=== PATIENT | male | born 1950 | race Hispanic/Latino ===

== ENCOUNTER 2017-04-12 00:13 | Inpatient (IN) | payer OTHER ==
[~2017-04-12] VITALS: Ht 167.6 cm; Wt 77.1 kg
--- NOTE | 2017-04-12 00:20 | ED CARDIAC/CP/PALPITATIONS ---
History of Present Illness General Chief Complaint: General Adult Stated Complaint: "HIGH BP,@ HOME BP195/134/HR 120,CHEST PA Source: patient, Daughter Exam Limitations: no limitations Reconcile Medications Atorvastatin Calcium 10 MG TABLET 1 TAB PO DAILY CHOL (Reported) Lisinopril 10 MG TABLET 1 TAB PO DAILY HTN (Reported) Omeprazole 20 MG CAPSULE.DR 1 CAP PO DAILY GERD (Reported) Triage Nurses Notes Reviewed? yes HPI: Mr. Scherer is a 66-year-old male former smoker (> 30 yrs ago) with a past medical history significant for hypertension, hyperlipidemia, stage 2 diastolic dysfunction (ECHO 2014), granulomatous disease who presents to the ED with palpitations for one day. Patient reports he was feeling fatigued all day and drank some coffee approximately 10 pm. Patient went to bed, then around 11 pm he began to feel palpitations. He took his blood pressure and noted a BP>190/130s that prompted him to come to the ED. He reports compliance with his medications. He denies any previous episodes. He denies SOB, CP, ARVIZU, blurry vision, fever, chills, night sweats, nausea, vomiting, lightheadedness. (Cris Garcia MD) Vital Signs & Intake/Output Vital Signs & Intake/Output Vital Signs Date Time Temp Pulse Resp B/P B/P Pulse O2 O2 Flow FiO2 Mean Ox Delivery Rate 04/12 128 98.3 133 20 175/111 04/12 012 98.3 133 20 175/111 97 Room Air 04/12 0039 98.1 136 18 160/80 98 Room Air Allergies Coded Allergies: No Known Allergies (04/12/17) (Corey LAWSON,Tony) Past History Travel History Traveled to [place] past 21 day No Medical History Any Pertinent Medical History? see below for history Cardiovascular: hypertension, hyperlipidemia Surgical History Surgical History: non-contributory Psychosocial History What is your primary language Niuean Family History Hx Contributory? Yes (Cris Garcia MD) Review of Systems Review of Systems Constitutional: Reports: see HPI. (Cris Garcia MD) Review of Systems EENTM: Reports: no symptoms. Respiratory: Reports: no symptoms. Cardiovascular: Reports: see HPI, palpitations. GI: Reports: no symptoms. Genitourinary: Reports: no symptoms. Musculoskeletal: Reports: no symptoms. Skin: Reports: no symptoms. Neurological/Psychological: Reports: no symptoms. Hematologic/Endocrine: Reports: no symptoms. Immunologic/Allergic: Reports: no symptoms. All Other Systems: Reviewed and Negative (Tony Nicole MD) Physical Exam Physical Exam General Appearance: well developed/nourished, anxious Head: atraumatic, normal appearance Eyes: Bilateral: normal appearance, PERRL, EOMI. Ears, Nose, Throat: normal pharynx, normal ENT inspection, hearing grossly normal Neck: normal inspection, supple, full range of motion Respiratory: normal breath sounds, lungs clear Cardiovascular: irregularly irregular Gastrointestinal: normal bowel sounds, soft, non-tender Rectal: heme negative stool Extremities: no edema Core Measures ACS in differential dx? No CVA/TIA Diagnosis No Sepsis Present: No Sepsis Focused Exam Completed? No (Radha LAWSON,[facility]) Physical Exam Peripheral Pulses: 4+ carotid (R), 4+ carotid (L) Back: normal inspection, normal range of motion Neurologic/Psych: no motor/sensory deficits, awake, alert, oriented x 3, normal gait, water trainer II-XII nml as tested Reflexes: 2+: bicep (R), bicep (L). Skin: intact, normal color, warm/dry Lymphatic: no anterior cervical naima (Tony Nicole MD) Progress Differential Diagnosis: atrial fibrillation, hyperthyroid Plan of Care: Orders Procedure Date/time Status Nothing by Mouth 04/12 B Active PARTIAL THROMBOPLASTIN TIME 04/12 0810 Active Admit to inpatient 04/12 0305 Active Patient Data 04/12 0304 Active EKG 04/12 0302 Active Misc Message 04/12 0213 Active ED Holding Orders 04/12 0213 Active Vital Signs 04/12 0213 Active Code Status 04/12 0213 Active Lab Add-on Test 04/12 0131 Active Add-on Test (ER Only) 04/12 0059 Active Add-on Test (ER Only) 04/12 0042 Active PARTIAL THROMBOPLASTIN TIME 04/12 0041 Complete PROTHROMBIN TIME 04/12 0041 Complete THYROID STIMULATING HORMONE 04/12 0040 Complete PHOSPHORUS 04/12 0040 Complete MAGNESIUM 04/12 0040 Complete FREE T4 04/12 0040 Complete B-TYPE NATRIURETIC PEP (BNP) 04/12 0040 Complete TROPONIN LEVEL 04/12 0021 Complete COMPREHENSIVE METABOLIC PANEL 04/12 0021 Complete CBC WITHOUT DIFFERENTIAL 04/12 0021 Complete EKG 04/12 0016 Active Current Medications Sig/Tanya Start time Last Medication Dose Stop Time Status Admin Heparin Sodium 25,000 UNIT Q24H 04/12 0130 AC 04/12 (Porcine) 0210 (Heparin) Sodium Chloride 500 ML Laboratory Tests 04/12/17 0041: PT 11.4, INR 1.09, APTT 33 04/12/17 0040: Anion Gap 18 H, Estimated GFR > 60, BUN/Creatinine Ratio 28.8 H, Glucose 136 H, Calcium 9.5, Phosphorus 3.7, Magnesium 1.8, Total Bilirubin 0.5, AST 30, ALT 41, Alkaline Phosphatase 109, Troponin I < 0.01, Xgg-U-Ivrmkhggesm Pept 274 H, Total Protein 7.5, Albumin 4.4, Globulin 3.1, Albumin/Globulin Ratio 1.4, TSH 1.360, Free T4 1.06, CBC w Diff NO MAN DIFF REQ, RBC 4.84, MCV 87.7, MCH 29.5, RDW 13.1, MPV 10.0, Gran % 62.8, Lymphocytes % 18.6 L, Monocytes % 10.8 H, Eosinophils % 7.4 H, Basophils % 0.4, Absolute Granulocytes 5.1, Absolute Lymphocytes 1.5, Absolute Monocytes 0.9 H, Absolute Eosinophils 0.6, Absolute Basophils 0, PUBS MCHC 33.7 Initial ED EKG: AFIB, HR 151 (Cris Garcia MD) Diagnostic Imaging: Viewed by Me: Radiology Read. Discussed w/RAD: Radiology Read. CXR Impression: no acute abnormality, no infiltrates Prior EKG: changed Rhythm Strip: atrial fibrillation (Tony Nicole MD) Departure Departure Disposition: STILL A PATIENT Condition: Stable Clinical Impression Primary Impression: Afib Departure Forms: Customer Survey General Discharge Information Admission Note Spoke With: Michael Mchugh MD Documentation of Exam: Documentation of any treatments & extenuating circumstances including Concerns Regarding Discharge (functional status, medication knowledge or non-compliance, living conditions, etc.) that warrant an admission rather than observation: [ cardiac evaluation, monitoring] (Cris Garcia MD) Resident Co-Sign Statement Statement: ED Attending supervision documentation- x I saw and evaluated the patient. I have also reviewed all the pertinent lab results and diagnostic results. I agree with the findings and the plan of care as documented in the Resident's documentation. Rapid heart rate with new onset afib on EKG [] I have reviewed the ED Record and agree with the Resident's documentation. [] Additions or exceptions (if any) to the Resident's note and plan are summarized below: [] (Corey LAWSON,Tony) Critical Care Note Critical Care Note Critical Care Time: non-applicable (Radha LAWSON,Cris)
[2017-04-12] MEDS ORDERED: OMEPRAZOLE20 M2 PO (00:40)
[2017-04-12] MEDS ORDERED: ATORVASTATIN CA10 M1 PO (00:40)
[2017-04-12] MEDS ORDERED: LISINOPRIL10 M1 PO (00:40)
[2017-04-12 00:48] LABS: ABSOLUTE BASOPHIL COUNT 0 /CUMM (0.0-0.2); ABSOLUTE EOSINOPHIL COUNT 0.6 /CUMM (0.0-0.7); ABSOLUTE GRANULOCYTE CT 5.1 /CUMM (1.4-6.5); ABSOLUTE LYMPH COUNT 1.5 /CUMM (1.2-3.4); ABSOLUTE MONOCYTE COUNT 0.9 /CUMM (0.10-0.60); BASOPHIL % 0.4 % (0.0-2.0); EOSINOPHIL % 7.4 % (0-5); GRANULOCYTE % 62.8 % (42.2-75.2); HEMATOCRIT 42.5 % (42-52); MEAN CORPUSCULAR HGB 29.5 PG (27.0-31.0); MEAN CORPUSCULAR HGB CONC 33.7 G/DL (33.0-37.0); MEAN CORPUSCULAR VOLUME 87.7 FL (80.0-94.0); PLATELET COUNT 184 /CUMM (130-400); RBC DISTRIBUTION WIDTH 13.1 % (11.5-14.5); RED BLOOD CELL CT 4.84 /CUMM (4.70-6.10); WHITE BLOOD CELL COUNT 8.1 /CUMM (4.8-10.8)
--- NOTE | 2017-04-12 01:04 | RADIOLOGY REPORT ---
EXAMINATION: XR PORTABLE CHEST CLINICAL INFORMATION: Palpitations COMPARISON: 03/08/2015 TECHNIQUE: Portable frontal view of the chest was obtained. FINDINGS: The lungs appear mildly hypoinflated. There are mild streaky bibasilar opacities favoring atelectasis. Previously identified right basilar lung nodules are not as well seen on the current study. The mid and upper lungs remain clear. No evidence of pneumothorax, significant pleural effusion, or pulmonary edema. Cardiac size is within normal limits. Calcification is present at the aortic arch. No acute osseous findings are seen. IMPRESSION: Mild streaky bibasilar opacities favoring atelectasis.
[2017-04-12 01:24] LABS: PT 11.4 SEC (9.4-12.5); PTT 33 SEC (25-37)
[2017-04-12 04:25] VITALS: BP 138/82
--- NOTE | 2017-04-12 05:10 | History & Physical ---
Laurita LAWSON,[facility] 04/12/17 0509: General Information and HPI MD Statement: I have seen and personally examined FLAKITO BOX and documented this H&P. The patient is a 66 year old M who presented with a patient stated chief complaint of [Palpitations]. Source of Information: patient Exam Limitations: no limitations History of Present Illness: Mr. Box is a 66-year-old gentleman with past medical history significant for hypertension and diastolic heart failure presents with palpitations that started around 11 PM last night. According to the patient, he was feeling tired and unwell since yesterday afternoon, around 9 PM he had a cup of coffee, after which he started having palpitations. He checked his blood pressure around 11pm which was in 200's systolic that got him worried and he came to the ER. Denies any associated chest pain, shortness of breath, orthopnea, PND, cough, or fever/chills. He has had 3 similar episodes in the past 6 months, lasting around 40-45 minutes, and resolved on their own. He was also recently sick with cold and cough, and has been using Robitussin and some nasal spray for that. Allergies/Medications Allergies: Coded Allergies: No Known Allergies (04/12/17) Home Med list Atorvastatin Calcium 10 MG TABLET 1 TAB PO DAILY CHOL (Reported) Lisinopril 10 MG TABLET 1 TAB PO DAILY HTN (Reported) Omeprazole 20 MG CAPSULE.DR 1 CAP PO DAILY GERD (Reported) Past History Travel History Traveled to [place] past 21 day No Medical History Blood Transfusion Hx: No Cardiovascular: diastolic CHF, hypertension History of MRSA: No History of VRE: No History of CDIFF: No Isolation History: Standard Influenza Vaccine: 02/26/17 Surgical History Surgical History: non-contributory Past Family/Social History Psychosocial History Where do you live? Home Smoking Status: Former Smoker ETOH Use: occasional use Illicit Drug Use: denies illicit drug use Functional Ability ADLs Independent: dressing, eating, toileting, bathing. Ambulation: independent IADLs Independent: shopping, housework, finances, food prep, telephone, transportation , medication admin. Review of Systems Review of Systems Constitutional: Reports: weakness. EENTM: Reports: no symptoms. Cardiovascular: Reports: palpitations. Respiratory: Reports: no symptoms. GI: Reports: no symptoms. Genitourinary: Reports: no symptoms. Musculoskeletal: Reports: no symptoms. Skin: Reports: no symptoms. Neurological/Psychological: Reports: no symptoms. Hematologic/Endocrine: Reports: no symptoms. Immunologic/Allergic: Reports: no symptoms. All Other Systems: Reviewed and Negative Exam & Diagnostic Data Last 24 Hrs of Vital Signs/I&O Vital Signs Date Time Temp Pulse Resp B/P B/P Pulse O2 O2 Flow FiO2 Mean Ox Delivery Rate 04/12 0425 97.7 86 18 138/82 97 Room Air 04/12 0400 Room Air 04/12 0129 98.3 133 20 175/111 04/12 0121 98.3 133 20 175/111 97 Room Air 04/12 0039 98.1 136 18 160/80 98 Room Air Intake & Output 04/12 0800 04/12 0000 04/11 1600 Intake Total Output Total Balance Patient 170 lb Weight Weight Reported by Patient Measurement Method Physical Exam General Appearance Alert, Oriented X3, Cooperative, No Acute Distress Skin No Rashes, No Breakdown HEENT Atraumatic, PERRLA, EOMI, Mucous Membr. moist/pink Cardiovascular Normal S1, Normal S2, Irregularly Irregular Lungs Clear to Auscultation Abdomen Normal Bowel Sounds, Soft, No Tenderness Extremities No Clubbing, No Cyanosis, No Edema, Normal Pulses Last 24 Hrs of Labs/Mario: Laboratory Tests 04/12/17 0041: PT 11.4, INR 1.09, APTT 33 04/12/17 0040: Anion Gap 18 H, Estimated GFR > 60, BUN/Creatinine Ratio 28.8 H, Glucose 136 H, Calcium 9.5, Phosphorus 3.7, Magnesium 1.8, Total Bilirubin 0.5, AST 30, ALT 41, Alkaline Phosphatase 109, Troponin I < 0.01, Xof-W-Qtzhmpkakty Pept 274 H, Total Protein 7.5, Albumin 4.4, Globulin 3.1, Albumin/Globulin Ratio 1.4, TSH 1.360, Free T4 1.06, CBC w Diff NO MAN DIFF REQ, RBC 4.84, MCV 87.7, MCH 29.5, RDW 13.1, MPV 10.0, Gran % 62.8, Lymphocytes % 18.6 L, Monocytes % 10.8 H, Eosinophils % 7.4 H, Basophils % 0.4, Absolute Granulocytes 5.1, Absolute Lymphocytes 1.5, Absolute Monocytes 0.9 H, Absolute Eosinophils 0.6, Absolute Basophils 0, PUBS MCHC 33.7 Diagnostic Data EKG Results Atrial Fibrillation Heart Rate 130 CXR Results IMPRESSION: Mild streaky bibasilar opacities favoring atelectasis. Assessment/Plan Assessment: Mr. Box is a 66-year-old gentleman with past medical history significant for hypertension and diastolic heart failure presents with palpitations that started around 11 PM last night. Assessment and plan; 1. Atrial fibrillation with RVR; patient was found to be in atrial fibrillation with the heart rate in 130s at the time of admission. Could have been precipitated with the coffee and Robitussin use. - We will admit the patient to telemetry floor. - We will start the patient on Cardizem drip, and titrate according to the heart rate. - Patient has a SOY VASC score of 3, continue IV heparin. - Cardiology consult. - Troponin and EKG 3 to rule out ACS. - Last echocardiogram was in April 2013, will obtain repeat echocardiogram. - Medication, phosphorus, TSH and free T4 levels are within normal range. - Patient is slightly dehydrated with sodium level of 147 and BUN of 23. We'll give 1 L of lactated Ringer. 2. History of hypertension; - Continue lisinopril 10 mg daily. 3. Questionable Granulomatous Disease; Found on previous CT(Mar 2015). - Obtain CT Chest for further evaluation. DVT prophylaxis; IV heparin Patient is full code As Ranked By This Provider Problem List: 1. Afib Core Measures/Misc (12/07) Acute Coronary Syndrome ACS Diagnosis: No Congestive Heart Failure Congestive Heart Failure Diagnosis No Cerebrovascular Accident CVA/TIA Diagnosis: No VTE (View Protocol) VTE Risk Factors Age>40 No Mechanical VTE Prophylaxis d/t N/A MechProphylax Ordered No VTE Pharm Prophylaxis d/t NA PharmProphylax ordered Sepsis (View protocol) Sepsis Present: No Naresh Espinoza MD 04/12/17 0642: Resident Review Statement Resident Statement: examined this patient, discussed with seo intern, agreed with seo intern Other Findings: This is a 66-year-old male with past medical history significant for hypertension, heart failure with preserved ejection fraction (seen on ECHO in 2013), granulomatous disease otherwise unspecified, who comes in for chief complaint of palpitations and hypertension. Patient states that he started to feel considerably fatigued this afternoon around 1 PM. He drank a cup of coffee around 10 PM to combat the fatigue and subsequently started feeling palpitations around 11 PM just as he was getting ready to go to bed. The palpitations was accompanied by a left-sided chest pressure and patient became concerned and measured his blood pressure. When he found his blood pressure elevated at 195/ 130 and then subsequently to 200 systolic, he became worried and came to the ED. Patient states that he took his hypertension medications this AM. He endorses recent cold and congestion for which he has been taking Robitussin and Mucinex along with a nasal spray several times this week, including today. He states that he has had palpitations at least 2 other times in the last 6 months. The palpitations have been sudden onset and lasted about 45 minutes accompanied by this left-sided chest pressure and usually went away by themselves. He does not follow a cable splicer. He denies any nausea, vomiting, diarrhea, shortness of breath, pleuritic pain, or chest pain. He does endorse some mild headache and chest pressure. He states the chest pressure was relieved after administration of Cardizem in the ED. Vitals: Temperature 98.3, 140s to 136, respiratory rate 20-18, blood pressure 160/80 to 175/111, satting 98% on room air. Physical exam: HEENT: Pupils equal and reactive. EOMI Cardiovascular: Irregularly irregular, tachycardic. Skin: no erythema, rash or wounds present. Respiratory:CTAB GI: BSX4, No tenderness on palpation. EXT: No lower extreme edema Assessment: This is a 66-year-old male with past medical history significant for hypertension, heart failure preserved ejection fraction, granulomatous disease seen on previous CT, who comes in for chief complaint of palpitations and hypertension. In ED he was found to have new onset atrial fibrillation with rapid ventricular response. He was given 10 mg push of Cardizem and started on IV heparin given a chads Vas-Cath 3. Given his history, I suspect that he is been having paroxysmal atrial fibrillation and this episode was exacerbated by the caffeine and [id number]-[id number] cold medication. Plan: 1. Symptomatic tachycardia: Upon reviewing patient's EKG it does look like he was in atrial fibrillation for some point but then it is unclear exactly what his rhythm becomes. Repeat EKG shows rate of 130 with some evident P waves. The QRS complex seems to have varying morphology. Unsure if this is afib/ flutter with a juxtapose junctional rhythm?? Regardless, knitter hand patient returned to normal sinus rhythm with heart rate of 70. TFT WNL. * At this time no later rhythm control medications on board. * Monitor on telemetry * As patient has no cable splicer we will place cardiology consult. * EKG and troponins * Echocardiogram * Given unknown granulomatous disease ? fx on conduction * Check lipid panel * Patient continues on a heparin drip. Reevaluate in a.m. 2. Unknown granulomatous disease: Patient states that he was told that he had "crystals in his lungs "as far back as [address] in Mar 2013 shows evidence of cystic or granulomatous lesions in lung and liver: " Multiple benign calcified granulomas within the lungs consistent with old healed granulomatous disease. These granulomas correspond to the radiographic finding of concern." Chest x-ray done today does show evidence of previously identified lung nodules. Given peripheral eosinophilia cannot rule out parasitic source of infection in this patient. * Consider CT chest for further eval. 3. Anion gap: Pt has gap os 18. DDX includes lactic acidosis in this gentleman. * Check lactic acid * Trend gap * IVF X1 4. URI: Patient complains of congestion, cough, rhinorrhea. Chest x-ray does show some mild streaky bibasilar opacities, most likely atelectasis. Do not suspect pneumonia at this time. * Benadryl * Nasal spray 5. Hypertension: We will continue his home regimen of lisinopril 10 mg daily. * Continue home meds * Reevaluated and titrate as necessary 6. HFpEF: Echo in 2013 showed stage 2 diastolic dysfunction. He does not have a cable splicer. Does not appear to be in HF exacerbation. BNP 274. * F/Up out pt with cable splicer 7. Hypernatremia: Na 147. BUN 23. Likely volume depleted. * IVF X1 * Remeasure in AM Full code Heart healthy diet Chemical DVT prophylaxis
--- NOTE | 2017-04-12 05:28 | Admission Certification ---
Admission Certification Certification Statement - As attending physician, I certify that at the time of - admission, based on clinical presentation, severity of - symptoms, need for further diagnostic testing and - therapeutic interventions, and risk of adverse outcomes - without in-hospital treatment, in my clinical assessment, - this patient requires an acute hospital stay for a minimum - of two nights or longer. I have also considered psychsocial - factors such as support system, advanced age, financial - issues, cognitive issues, and failed out-patient treatments, - past re-admission history, safety of patient, and lack of - compliance as applicable. Specific rationale supporting this admission is: A. fib with RVR
--- NOTE | 2017-04-12 05:46 | PN- Att Addend ---
Attending Addendum Attending Brief Note CC: Irregular heart rate at home PMH : HTN Patient came to ER for irregular heart rate and chest uneasiness. He states that he was feeling tired today, drank a cup of coffee around 9 PM and then went to bed, around 11 PM he woke up with palpitations. He went to check his blood pressure in his upper number was in 190s to 200s his heart rate was running more than 120. At the same time he also noticed chest uneasiness, he waited for some time but symptoms did not resolve so he came to ER. Patient had similar episodes at least a 3-4 times in last 6 months lasting for 45 minutes and self resolving. Since February patient had 3 times URI symptoms, first and resolved on its own, second time symptoms persisted more than week so he went to primary care was treated with antibiotics and Robitussin and some nasal spray. Symptoms resolved but recurred again 4 days back, he continued to take the Robitussin and nasal spray. Other than these symptoms patient denies any dizziness, presyncope, loss of consciousness, chest tightness, on and off leg swelling. Currently his nose is very congested and stuffy and very difficult to breathe, along with that he has cough with yellowish-green sputum production, denies pleuritic chest pain, denies any fever or chills at home. Vitals: Afebrile, pulse in 130s, RR 20, blood pressure 160/80 on arrival then 175/111, saturating 98% on room air On exam: A O 3, cooperative, no acute distress, nasal stuffiness, neck supple, JVD normal, no lymphadenopathy, mucosa dry, no focal neurological deficit, no dependent edema, no obvious skin rashes or inflammation CVS: S1-S2, regular. RS: Clear to auscultate bilaterally. Abdomen: Soft, NT, ND, bowel sounds present. Labs: CBC unremarkable, sodium 147, potassium 3.8, chloride 103, bicarbonate 26, BUN 23, creatinine 0.8, glucose 136, calcium 9.5, LFT unremarkable, troponin less than 0.01, BNP 274, TSH 1.36, INR 1.09 ECG: ? A. fib, ? Wandering pacer CXR:Mild streaky bibasilar opacities favoring atelectasis. Assessment and plan 66-year-old male with past medical history of hypertension presented in ER for irregular heart rhythm and high blood pressure. He woke up with palpitations and checked his blood pressure and heart rate both were very high, persisted for some time so he came to ER. He had similar episodes at least 3-4 times over 6 months which resolved in 45 minutes. He had 3 times URI since February, was under symptomatic treatment. In ER on arrival he is found to have A. fib with RVR Vs wandering pacer, initial blood pressure was 160/80 but increased to 175/ 111, no JVD, crackles, leg edema. ECG. Patient was given 10 mg of IV Cardizem push, heart rate transiently dropped to 8 days but then again increased to 140s, later on patient spontaneously converted to normal sinus. Currently does not have any chest pain, more complains of nasal stuffiness productive cough and difficulty breathing through nose. His excessive use of Robitussin, nasal sprays are URI itself may have precipitated the A. fib. Patient was started on heparin in ER. He has a noted echocardiogram done in 2013, shows stage II diastolic dysfunction, but patient does not have any symptoms. According to him it was done to evaluate an episode of syncope. Chest x-ray shows streaky bibasilar opacities, in comparison to previous imaging was reviewed, CT chest scan done on March 2015 shows benign calcified granulomas consistent with old granulomatous disease (patient is aware of some "crystals" in his lungs since 15 year back) and multiple scattered hypodense lesions in the liver suggestive of cysts. Patient has mild eosinophilia. Patient probably from [facility], never has a diagnosis of tuberculosis, never had a prolonged illness, no night sweats, no loss of appetite, no glands or nodes. This likely connective tissue disorder causing any conduction abnormalities. + A. fib with RVR + History of hypertension - Admit to telemetry for A. fib with RVR probably new onset - Continuous telemetry monitoring - Serial troponin and EKGs - 2-D echo in a.m. - Cardiology consult in a.m. - Continue his home medications - Continue heparin drip - Continue gentle Ringer's lactate saline 75 per hour for 1 L - Continue antihistaminics for decongestion, saline nasal spray
[2017-04-12 08:39] LABS: ABSOLUTE BASOPHIL COUNT 0 /CUMM (0.0-0.2); ABSOLUTE EOSINOPHIL COUNT 0.5 /CUMM (0.0-0.7); ABSOLUTE LYMPH COUNT 1.6 /CUMM (1.2-3.4); ABSOLUTE MONOCYTE COUNT 0.8 /CUMM (0.10-0.60); BASOPHIL % 0.1 % (0.0-2.0); EOSINOPHIL % 7.5 % (0-5); GRANULOCYTE % 58.3 % (42.2-75.2); HEMATOCRIT 41.8 % (42-52); MEAN CORPUSCULAR HGB 29.3 PG (27.0-31.0); MEAN CORPUSCULAR HGB CONC 33.2 G/DL (33.0-37.0); MEAN CORPUSCULAR VOLUME 88.2 FL (80.0-94.0); MEAN PLATELET VOLUME 10.1 FL (7.4-10.4); PLATELET COUNT 182 /CUMM (130-400); RBC DISTRIBUTION WIDTH 13.5 % (11.5-14.5); RED BLOOD CELL CT 4.75 /CUMM (4.70-6.10); WHITE BLOOD CELL COUNT 6.9 /CUMM (4.8-10.8)
[2017-04-12 09:17] LABS: PTT > 120 SEC (25-37)
[2017-04-12 09:37] VITALS: BP 126/70
--- NOTE | 2017-04-12 14:34 | PN- Att Addend ---
Attending Addendum Attending Brief Note I have seen and examined the patient bedside discussed with the family members about the plan and the house staff and nursing team in agreement Mr. Scherer is [id number] relatively healthy male with past medical history of hypertension presented in ER for irregular heart rhythm and high blood pressure. He woke up with palpitations and checked his blood pressure and heart rate both were very high, persisted for some time so he came to ER. Patient found to be in new onset atrial fibrillation with rapid ventricular rate was given IV diltiazem and and the patient converted spontaneously to sinus rhythm. Currently in sinus rhythm denies any episodes of chest pain shortness of breath palpitation. Currently on IV heparin infusion, awaiting cardiology input. His thyroid function tests have been within normal limits. Awaiting transthoracic echocardiogram. Troponins have trended down to be negative. Patient has been using number of antihistamines and inhalers which may be contributing to his hypertension and possibly a trigger to his atrial fibrillation
[2017-04-12 15:15] VITALS: BP 120/60
--- NOTE | 2017-04-12 15:42 | Cons- Cardiology ---
General Information and HPI Consulting Request Date of Consult: 04/12/17 Requested By: Michael Mchugh MD Source of Information: patient, old records Exam Limitations: no limitations History of Present Illness: Mr. Cristhian Scherer is a 66-year-old male with a history of gastroesophageal reflux disease, hiatal hernia, previous syncope, dyslipidemia, hypertension and diastolic dysfunction who presented to the ED with a complaint of palpitations that began ~11:00 p.m. last evening (). He states he was feeling unwell and fatigued since yesterday afternoon and ~9:00 p.m. he had a cup of coffee, after which he began experiencing palpitations. He checked his blood pressure ~11:00 p.m. and found it to be >200 mmHg systolic, became worried and sought medical attention at the ED. He denies any associated chest discomfort, shortness of breath, orthopnea, PND, lower extremity edema, dry cough, etc. He reports having 3 similar episodes over the past 6 months, each lasting ~40-45 minutes per episode which resolved spontaneously. He does admit to being ill with cold symptoms recently with a minimally productive cough which she treated with an [id number] nasal spray and Robitussin. Allergies/Medications Allergies: Coded Allergies: No Known Allergies (04/12/17) Home Med List: Atorvastatin Calcium 10 MG TABLET 1 TAB PO DAILY CHOL (Reported) Lisinopril 10 MG TABLET 1 TAB PO DAILY HTN (Reported) Omeprazole 20 MG CAPSULE.DR 1 CAP PO DAILY GERD (Reported) Review of Systems Review of Systems: A 14 point system review was obtained and was noncontributory, other than as above. Past History Travel History Traveled to [place] past 21 day No Medical History Blood Transfusion Hx: No Cardiovascular: diastolic CHF, hypertension Surgical History Surgical History: non-contributory, s/p vascetectomy, s/p hemorrhoidectomy Psychosocial History Where Do You Live? Home Smoking Status: Former Smoker ETOH Use: occasional use Illicit Drug Use: denies illicit drug use Functional Ability ADLs Independent: dressing, eating, toileting, bathing. Ambulation: independent IADLs Independent: shopping, housework, finances, food prep, telephone, transportation , medication admin. Exam & Diagnostic Data Vital Signs and I&O Vital Signs Date Time Temp Pulse Resp B/P B/P Pulse O2 O2 Flow FiO2 Mean Ox Delivery Rate 04/12 1515 98.7 73 20 120/60 94 04/12 0937 97.6 82 18 126/70 95 Room Air 04/12 0932 82 126/70 04/12 0800 Room Air 04/12 0425 97.7 86 18 138/82 97 Room Air 04/12 0400 Room Air 04/12 0129 98.3 133 20 175/111 04/12 0121 98.3 133 20 175/111 97 Room Air 04/12 0039 98.1 136 18 160/80 98 Room Air Intake & Output 04/12 1600 04/12 0800 04/12 0000 04/11 1600 04/11 0800 04/11 0000 Intake Total 958 208 Output Total 400 Balance 958 -192 Intake, IV 158 208 Intake, Oral 800 Output, Urine 400 Patient 170 lb Weight Weight Reported by Patient Measurement Method Physical Exam: Well-developed, well-nourished elderly male in no acute distress. Vital signs: See above. HEENT: Normocephalic, atraumatic, EOMI, moist mucous membranes. Neck: No JVD, no bruits. Lungs: Clear to auscultation bilaterally. Heart: S1, S2 with soft (grade 1/6) systolic murmur. No gallop or rub. PMI fifth ICS at MCL. Abdomen: Soft, nontender, positive bowel sounds. Extremities: No edema, cyanosis, or clubbing. Labs/Mario Results: Laboratory Tests 04/12 04/12 04/12 1318 0745 0745 Chemistry Lactic Acid (0.7 - 2.1 mmol/L) 0.8 Troponin I (<0.11 ng/ml) Pending 0.07 Coagulation APTT (25 - 37 SEC) > 120 *H Hematology CBC w Diff NO MAN DIFF REQ WBC (4.8 - 10.8 /CUMM) 6.9 RBC (4.70 - 6.10 /CUMM) 4.75 Hgb (14.0 - 18.0 G/DL) 13.9 L Hct (42 - 52 %) 41.8 L MCV (80.0 - 94.0 FL) 88.2 MCH (27.0 - 31.0 PG) 29.3 RDW (11.5 - 14.5 %) 13.5 Plt Count (130 - 400 /CUMM) 182 MPV (7.4 - 10.4 FL) 10.1 Gran % (42.2 - 75.2 %) 58.3 Lymphocytes % (20.5 - 51.1 %) 23.0 Monocytes % (1.7 - 9.3 %) 11.1 H Eosinophils % (0 - 5 %) 7.5 H Basophils % (0.0 - 2.0 %) 0.1 Absolute Granulocytes (1.4 - 6.5 /CUMM) 4.0 Absolute Lymphocytes (1.2 - 3.4 /CUMM) 1.6 Absolute Monocytes (0.10 - 0.60 /CUMM) 0.8 H Absolute Eosinophils (0.0 - 0.7 /CUMM) 0.5 Absolute Basophils (0.0 - 0.2 /CUMM) 0 PUBS MCHC (33.0 - 37.0 G/DL) 33.2 04/12 04/12 04/12 0630 0041 0040 Chemistry Sodium (137 - 145 mmol/L) 147 H Potassium (3.5 - 5.1 mmol/L) 3.8 Chloride (98 - 107 mmol/L) 103 Carbon Dioxide (22 - 30 mmol/L) 26 Anion Gap (5 - 16) 18 H BUN (9 - 20 mg/dL) 23 H Creatinine (0.7 - 1.2 mg/dL) 0.8 Estimated GFR (>60 ml/min) > 60 BUN/Creatinine Ratio (7 - 25 %) 28.8 H Glucose (65 - 99 mg/dL) 136 H Calcium (8.4 - 10.2 mg/dL) 9.5 Phosphorus (2.5 - 4.5 mg/dL) 3.7 Magnesium (1.6 - 2.3 mg/dL) 1.8 Total Bilirubin (0.2 - 1.3 mg/dL) 0.5 AST (17 - 59 U/L) 30 ALT (21 - 72 U/L) 41 Alkaline Phosphatase (< 127 U/L) 109 Troponin I (<0.11 ng/ml) Cancelled < 0.01 [id number] Pept (<125 pg/mL) 274 H Total Protein (6.3 - 8.2 g/dL) 7.5 Albumin (3.5 - 5.0 g/dL) 4.4 Globulin (1.9 - 4.2 gm/dL) 3.1 Albumin/Globulin Ratio (1.1 - 2.2 %) 1.4 Triglycerides (<150 mg/dL) 69 Cholesterol (< 200 MG/DL) 105 LDL Cholesterol, Calc (65 - 129 mg/dL) 50 L HDL Cholesterol (40 - 60 mg/dL) 42 Cholesterol/HDL Ratio (0.00 - 4.88 %) 2 TSH (0.270 - 4.200 uIU/mL) 1.360 Free T4 (0.78 - 2.44 ng/dL) 1.06 Coagulation PT (9.4 - 12.5 SEC) 11.4 INR (0.90 - 1.17) 1.09 APTT (25 - 37 SEC) 33 Hematology CBC w Diff NO MAN DIFF REQ WBC (4.8 - 10.8 /CUMM) 8.1 RBC (4.70 - 6.10 /CUMM) 4.84 Hgb (14.0 - 18.0 G/DL) 14.3 Hct (42 - 52 %) 42.5 MCV (80.0 - 94.0 FL) 87.7 MCH (27.0 - 31.0 PG) 29.5 RDW (11.5 - 14.5 %) 13.1 Plt Count (130 - 400 /CUMM) 184 MPV (7.4 - 10.4 FL) 10.0 Gran % (42.2 - 75.2 %) 62.8 Lymphocytes % (20.5 - 51.1 %) 18.6 L Monocytes % (1.7 - 9.3 %) 10.8 H Eosinophils % (0 - 5 %) 7.4 H Basophils % (0.0 - 2.0 %) 0.4 Absolute Granulocytes (1.4 - 6.5 /CUMM) 5.1 Absolute Lymphocytes (1.2 - 3.4 /CUMM) 1.5 Absolute Monocytes (0.10 - 0.60 /CUMM) 0.9 H Absolute Eosinophils (0.0 - 0.7 /CUMM) 0.6 Absolute Basophils (0.0 - 0.2 /CUMM) 0 PUBS MCHC (33.0 - 37.0 G/DL) 33.7 Diagnostic Data EKG Results EKG: (04/12/2017 at 0:23) atrial fibrillation with a rapid ventricular response and nondiagnostic ST-T wave abnormalities. Faster rate and rhythm change when compared to previous tracing from 08/13/2012. EKG: (04/12/2017 at 13:30): Sinus rhythm, nondiagnostic minor inferior T-wave abnormalities. Minor changes when compared to previous tracing from 04/12/2017. CXR Results CXR 04/12/2017: The lungs appear mildly hypoinflated. There are mild streaky bibasilar opacities favoring atelectasis. Previously identified right basilar lung nodules are not as well seen on the current study. The mid and upper lungs remain clear. No evidence of pneumothorax, significant pleural effusion, or pulmonary edema. Cardiac size is within normal limits. Calcification is present at the aortic arch. No acute osseous findings are seen. Assessment/Plan Assessment/Plan [id number] w/ hx GERD, HH, previous syncope, HLD, HTN, & diastolic dysfunction who presented to the ED w/ a c/o palpitations that began ~11:00 p.m. last evening () with monitoring/12-lead ECG consistent with atrial fibrillation with a rapid mean ventricular response and nondiagnostic minor ST-T wave abnormalities. Fortunately, he has spontaneously converted back to sinus rhythm hours after being given IV diltiazem 10 mg 1 help control the ventricular response to the atrial fibrillation. As he has a [id number] Score of 2 (HTN, age 65-74) and an unadjusted stroke rate of 2.2% per year, versus 0.2% per year with a score of 0, it is reasonable to maintain him on anticoagulation given his additional history of having several such similar episodes as those which led to his presentation last evening. Recommendations: * Continue on telemetry and follow-up troponins. * Place on low-dose beta romina, such as metoprolol succinate 25 mg daily. * Reasonable to place on an NOAC for his paroxysmal atrial fibrillation and [id number] Score of 2. * Echocardiogram to assess left ventricular systolic/diastolic function, left ventricular hypertrophy, valvular function, etc. * Replete potassium and magnesium. * Check glycosylated hemoglobin A1c. * Note thyroid function within normal limits. * Place back on the rest of his outpatient medications. * DVT prophylaxis being addressed by anticoagulation for his atrial fibrillation. * Given multiple risk factors for CAD, consider outpatient exercise stress testing for risk stratification. Further recommendations will follow, Thank you. Consult Acknowledgment - Thank you for your consult request.
--- NOTE | 2017-04-12 15:58 | ECHOCARDIOGRAM REPORT ---
CHARU YAKUT Age: 66 : 1950 Gender: M Exam Date: 04/12/2017 14:01 Exam Location: [address] Ht (in): 66 Wt (lb): 170 BSA: 1.91 BP: 138 / 82 Ordering Physician: Norma Espinoza MD Referring Physician: Terry Wilder MD Technologist: Florencia Chavez [facility] Room Number: [id number] Indications: AFIB/FLUTTER Rhythm: Sinus Technical Quality: Technically difficult study FINDINGS Left Ventricle Normal size left ventricle. Mild concentric left ventricular hypertrophy. No obvious regional wall motion abnormalities. Normal left ventricular ejection fraction visually estimated at 65%. Mildly increased resting left ventricular outflow tract velocity (1.3 m/s). Abnormal relaxation filling pattern of the left ventricle for age (stage 1 diastolic dysfunction). Right Ventricle Normal right ventricular size and function. Right Atrium Normal right atrial size. Left Atrium Normal left atrial size. Mitral Valve Mild mitral annular calcification. Mitral valve mildly thickened. No mitral regurgitation. Aortic Valve Trileaflet aortic valve. Minimal aortic sclerosis. No aortic valve stenosis or regurgitation. Tricuspid Valve Structurally normal tricuspid valve. Trace tricuspid regurgitation. No evidence of pulmonary hypertension. Right ventricular systolic pressure estimated to be within the normal range at 10 mmHg. Pulmonic Valve Pulmonic valve not well visualized, grossly normal. No pulmonic regurgitation. Pericardium No pericardial effusion. Great Vessels Normal size aortic root. CONCLUSIONS Normal size left ventricle. Mild concentric left ventricular hypertrophy. No obvious regional wall motion abnormalities. Normal left ventricular ejection fraction visually estimated at 65%. Mildly increased resting left ventricular outflow tract velocity (1.3 m/s). Abnormal relaxation filling pattern of the left ventricle for age (stage 1 diastolic dysfunction). Normal right ventricular size and function. Normal atrial size. Trace tricuspid regurgitation. No evidence of pulmonary hypertension. Terry Wilder M.D. (Electronically Signed) Final Date: 12 April 2017 15:58 MEASUREMENTS (Male / Female) Normal Values 2D ECHO LV Diastolic Diameter PLAX 4.1 cm 4.2 - 5.9 / 3.9 - 5.3 cm LV Systolic Diameter PLAX 2.2 cm 2.1 - 4.0 cm LV Fractional Shortening PLAX 46.3 % 25 - 46 % LV Ejection Fraction 2D Teich 78.2 % IVS Diastolic Thickness 1.3 cm LVPW Diastolic Thickness 1.3 cm LV Relative Wall Thickness 0.6 RV Internal Dim ED PLAX 3.4 cm 1.9 - 3.8 cm LVOT Diameter 1.8 cm Aortic Root Diameter 3.1 cm LA Systolic Diameter LX 3.5 cm 3.0 - 4.0 / 2.7 - 3.8 cm LA Volume 23.0 cm 18 - 58 / 22 - 52 cm Ascending Aorta Diameter 3.0 cm DOPPLER AV Peak Velocity 137.0 cm/s AV Peak Gradient 7.5 mmHg AV Mean Velocity 92.3 cm/s AV Mean Gradient 4.0 mmHg AV Velocity Time Integral 27.4 cm LVOT Peak Velocity 132.0 cm/s LVOT Peak Gradient 7.0 mmHg LVOT Mean Velocity 92.4 cm/s LVOT Mean Gradient 4.0 mmHg LVOT Velocity Time Integral 26.1 cm LVOT Stroke Volume 66.4 cm AV Area Cont Eq vti 2.4 cm AV Area Cont Eq pk 2.5 cm MV Peak Velocity 81.8 cm/s MV Peak Gradient 2.7 mmHg MV Mean Velocity 51.0 cm/s MV Mean Gradient 1.0 mmHg Mitral E Point Velocity 55.3 cm/s Mitral A Point Velocity 75.0 cm/s Mitral E to A Ratio 0.7 MV PHT Velocity 68.6 cm/s MV Deceleration [place] 186.0 cm/s MV Pressure Half Time 110.6 ms MV Area PHT 2.0 cm MV Deceleration Time 317.0 ms TR Peak Velocity 111.0 cm/s TR Peak Gradient 4.9 mmHg Right Atrial Pressure 5.0 mmHg Pulmonary Artery Systolic Pressu 9.9 mmHg Right Ventricular Systolic Press 9.9 mmHg PV Peak Velocity 95.1 cm/s PV Peak Gradient 3.6 mmHg PV Mean Velocity 62.3 cm/s PV Mean Gradient 2.0 mmHg PV Velocity Time Integral 22.9 cm LV E' Lateral Velocity 6.1 cm/s Mitral E to LV E' Lateral Ratio 9.0 LV E' Septal Velocity 4.0 cm/s Mitral E to LV E' Septal Ratio 13.8
[2017-04-12 20:18] LABS: PTT 44 SEC (25-37)
[2017-04-12 21:38] VITALS: BP 110/80
[2017-04-13 03:44] LABS: PTT 92 SEC (25-37)
[2017-04-13 07:14] VITALS: BP 124/76
[2017-04-13 08:16] LABS: ABSOLUTE BASOPHIL COUNT 0 /CUMM (0.0-0.2); ABSOLUTE EOSINOPHIL COUNT 0.5 /CUMM (0.0-0.7); ABSOLUTE GRANULOCYTE CT 4.3 /CUMM (1.4-6.5); ABSOLUTE LYMPH COUNT 1.5 /CUMM (1.2-3.4); ABSOLUTE MONOCYTE COUNT 0.7 /CUMM (0.10-0.60); BASOPHIL % 0.4 % (0.0-2.0); EOSINOPHIL % 6.4 % (0-5); GRANULOCYTE % 61.8 % (42.2-75.2); MEAN CORPUSCULAR HGB 28.9 PG (27.0-31.0); MEAN CORPUSCULAR HGB CONC 32.5 G/DL (33.0-37.0); MEAN PLATELET VOLUME 10.4 FL (7.4-10.4); PLATELET COUNT 171 /CUMM (130-400); RBC DISTRIBUTION WIDTH 13.3 % (11.5-14.5); RED BLOOD CELL CT 4.72 /CUMM (4.70-6.10)
--- NOTE | 2017-04-13 08:30 | PN- Housestaff ---
See Addendum Subjective Follow-up For: Afib Tele-Events Since Last Visit: SR 64-66 Subjective: Patient visited today, was lying in bed comfortably in no acute distress, was alert and oriented. Patient had no complaint today. No fever or chills, no shortness of breathing, no chest pain, no other events. Patient was stable to be discharged as plan noted below. Review of Systems Constitutional: Reports: see HPI. Objective Last 24 Hrs of Vital Signs/I&O Vital Signs Date Time Temp Pulse Resp B/P B/P Pulse O2 O2 Flow FiO2 Mean Ox Delivery Rate 04/13 1445 97.6 70 19 130/80 04/13 1055 72 142/78 04/13 1052 72 142/78 04/13 0714 98.2 72 18 124/76 96 Room Air 04/12 2138 97.9 70 18 110/80 96 04/12 2049 73 120/60 Intake & Output 04/13 1600 04/13 0800 04/13 0000 Intake Total 870 320 460 Output Total Balance 870 320 460 Intake, IV 150 220 60 Intake, Oral 720 100 400 Physical Exam General Appearance: Alert, Oriented X3, Cooperative, No Acute Distress Skin: No Significant Lesion Skin Temp/Moisture Exam: Warm/Dry Sepsis Skin Exam (color): Normal for Ethnicity HEENT: Atraumatic, EOMI, Mucous Membr. moist/pink Cardiovascular: Regular Rate, Normal S1, Normal S2, No Murmurs Lungs: Clear to Auscultation Abdomen: Soft, No Tenderness Neurological: Normal Speech Extremities: No Edema Current Medications: Current Medications Sig/Tanya Start time Last Medication Dose Route Stop Time Status Admin Acetaminophen 650 MG Q6P PRN 04/12 0345 AC PO Acetaminophen 1,000 MG Q6P PRN 04/12 0345 AC IV Apixaban 5 MG BID 04/13 1130 AC 04/13 PO 1335 Atorvastatin Calcium 10 MG 1700 04/12 1700 AC 04/12 PO 1631 Diphenhydramine HCl 50 MG Q4P PRN 04/12 1000 AC PO Heparin Sodium 5,783 UNIT ONE ONE 04/12 2030 DC 04/12 (Porcine) IV 04/12 Heparin Sodium 25,000 UNIT Q24H 04/12 0130 DC 04/13 (Porcine) IV 0906 Sodium Chloride 500 ML Lisinopril 10 MG DAILY 04/12 1000 AC 04/13 PO 1055 Metoprolol Succinate 25 MG DAILY 04/12 1925 AC 04/13 PO 1052 Morphine Sulfate 2 MG Q4P PRN 04/12 0345 AC IV Omeprazole 20 MG DAILY AC 04/12 0800 AC 04/13 PO 0701 Sodium Chloride 2 SPRAY Q4P PRN 04/12 0730 AC 04/12 ANDREA 1351 Last 24 Hrs of Lab/Mario Results Last 24 Hrs of Labs/Mics: Laboratory Tests 04/13/17 0820: APTT 97 H 04/13/17 0626: Anion Gap 10, Estimated GFR > 60, BUN/Creatinine Ratio 21.3, Magnesium 1.8, CBC w Diff NO MAN DIFF REQ, RBC 4.72, MCV 89.0, MCH 28.9, RDW 13.3, MPV 10.4, Gran % 61.8, Lymphocytes % 21.3, Monocytes % 10.1 H, Eosinophils % 6.4 H, Basophils % 0.4, Absolute Granulocytes 4.3, Absolute Lymphocytes 1.5, Absolute Monocytes 0.7 H, Absolute Eosinophils 0.5, Absolute Basophils 0, PUBS MCHC 32.5 L 04/13/17 0220: APTT 92 H 04/12/17 1800: APTT 44 H Assessment/Plan Assessment: Mr. Scherer is a 66-year-old gentleman with past medical history significant for hypertension and diastolic heart failure presents with palpitations. Patient was found to have atrial fibrillation in the ED, IV Cardizem push was administered which resulted in conversion to sinus rhythm. Patient was admitted to telemetry floor for management of following conditions: 1. Atrial fibrillation with RVR; Patient was found to be in atrial fibrillation with the heart rate in 130s at the time of admission. Patient reported that this episode took about 45 minutes , he also reported at least 3 times of similar episodes in the past. Current episode was most likely precipitated with the coffee and Robitussin use, however considering the previous history patient was diagnosed with paroxysmal atrial fibrillation. Fortunately patient was converted after Cardizem push in the ED. This was very fortunate which could be related to clearance of coffee and URTI meds. Medication, phosphorus, TSH and free T4 levels are within normal range. Echocardiogram was performed: Normal size left ventricle. Mild concentric left ventricular hypertrophy. No obvious regional wall motion abnormalities. Normal left ventricular ejection fraction visually estimated at 65%. Mildly increased resting left ventricular outflow tract velocity (1.3 m/s). Abnormal relaxation filling pattern of the left ventricle for age (stage 1 diastolic dysfunction). Normal right ventricular size and function. Normal atrial size. Trace tricuspid regurgitation. No evidence of pulmonary hypertension. Nick vasc score was calculated as 3 meaning benefits of anticoagulation outweighed the risks. Patient was admitted to telemetry floor, rate was controlled was Cardizem drip initially and then changed to by mouth metoprolol. IV heparin was administered and upon discharge was changed to request. 2. History of hypertension; We Continued lisinopril 10 mg daily. 3. Questionable Granulomatous Disease; Found on previous CT(Mar 2015). Patient was instructed to follow in outpatient. DVT prophylaxis; IV heparin Patient is full code Patient was discharged with recommendation to follow in outpatient with PCP and cardiology. Problem List: 1. Afib Pain Ratin Pain Location: None Pain Goal: Pain 4 or less Pain Plan: N?A Tomorrow's Labs & Rationales: na
[2017-04-13 08:47] LABS: PTT 97 SEC (25-37)
[2017-04-13] MEDS ORDERED: TOPROL XL25 M1 PO ×2 (11:09→15:56)
[2017-04-13] MEDS ORDERED: ELIQUIS5 M1 PO ×2 (11:09→15:56)
--- NOTE | 2017-04-13 11:13 | Patient Discharge Instructions ---
Discharge Instructions General Discharge Information You were seen/treated for: Atrial fibrilation Watch for these problems: Worsening of palpitatino, heart racing, chest pain, bleeding, weakness or worsening of any other symptoms Special Instructions: Please follow with your PCP within one week of discharge. Please inform yoru PCP regarding your hospitalization and evaluation of lung problem. Please follow with your protector plate attacher within 1 week of discharge. Please take your medication as ordered, please come back to the hospital symptoms worsen. Diet Continue normal diet: No Recommended Diet: Heart Healthy Activity Full Activity/No Limits: No Activity Self Limited: Yes Acute Coronary Syndrome Inclusion Criteria At DC or during hospital stay patient has or had the following: ACS DIAGNOSIS No Discharge Core Measures Meds if any: Prescribed or Continued at Discharge Meds if any: NOT Prescribed or Continued at Discharge Congestive Heart Failure Inclusion Criteria At DC or during hospital stay patient has or had the following: CHF DIAGNOSIS No Discharge Core Measures Meds if any: Prescribed or Continued at Discharge Meds if any: NOT Prescribed or Continued at Discharge Cerebrovascular accident Inclusion Criteria At DC or during hospital stay patient has or had the following: CVA/TIA Diagnosis No Discharge Core Measures Meds if any: Prescribed or Continued at Discharge Meds if any: NOT Prescribed or Continued at Discharge Venous thromboembolism Inclusion Criteria VTE Diagnosis No VTE Type NONE VTE Confirmed by (Test) NONE Discharge Core Measures - Per Current guidelines, there needs to be overlap - treatment for the first 5 days of Warfarin therapy. - If discharged on Warfarin prior to 5 days of - overlap therapy, the patient will need to be - assessed for post discharge needs including - *Post discharge parental anticoagulation - *Warfarin and/or parental anticoagulation education - *Follow up date to check INR post discharge At least 5 days overlap therapy as Inpatient No Meds if any: Prescribed or Continued at Discharge Note: Overlap Therapy is Warfarin and Anticoagulant Meds if any: NOT Prescribed or Continued at Discharge
--- NOTE | 2017-04-13 11:36 | Discharge Summary ---
Visit Information Visit Dates Admission Date: 04/12/17 Discharge Date: 04/13/17 Hospital Course Course Attending Physician: Karie Cortez MD Primary Care Physician: Reji LAWSON,Reji [facility] Course: Mr. Scherer is a 66-year-old gentleman with past medical history significant for hypertension and diastolic heart failure presents with palpitations. Patient was found to have atrial fibrillation in the ED, IV Cardizem push was administered which resulted in conversion to sinus rhythm. Patient was admitted to telemetry floor for management of following conditions: 1. Atrial fibrillation with RVR; Patient was found to be in atrial fibrillation with the heart rate in 130s at the time of admission. Patient reported that this episode took about 45 minutes , he also reported at least 3 times of similar episodes in the past. Current episode was most likely precipitated with the coffee and Robitussin use, however considering the previous history patient was diagnosed with paroxysmal atrial fibrillation. Fortunately patient was converted after Cardizem push in the ED. This was very fortunate which could be related to clearance of coffee and URTI meds. Medication, phosphorus, TSH and free T4 levels are within normal range. Echocardiogram was performed: Normal size left ventricle. Mild concentric left ventricular hypertrophy. No obvious regional wall motion abnormalities. Normal left ventricular ejection fraction visually estimated at 65%. Mildly increased resting left ventricular outflow tract velocity (1.3 m/s). Abnormal relaxation filling pattern of the left ventricle for age (stage 1 diastolic dysfunction). Normal right ventricular size and function. Normal atrial size. Trace tricuspid regurgitation. No evidence of pulmonary hypertension. Nick vasc score was calculated as 3 meaning benefits of anticoagulation outweighed the risks. Patient was admitted to telemetry floor, rate was controlled was Cardizem drip initially and then changed to by mouth metoprolol. IV heparin was administered and upon discharge was changed to Eliquise. 2. History of hypertension; We Continued lisinopril 10 mg daily. 3. Questionable Granulomatous Disease; Found on previous CT(Mar 2015). Patient was instructed to follow in outpatient. DVT prophylaxis IV heparin while in hospital. Patient is full code Allergies: Coded Allergies: No Known Allergies (04/12/17) Disposition Summary Disposition Principal Diagnosis: Afib Additional Diagnosis: Questionable Granulomatous Disease Discharge Disposition: home or self care Discharge Instructions General Discharge Information Code Status: Full Code Patient's Diet: Heart healthy Patient's Activity: Self limited Follow-Up Instructions/Appts: Please follow with your PCP within one week of discharge. Please inform yoru PCP regarding your hospitalization and evaluation of lung problem. 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 Please take your medication as ordered, please come back to the hospital symptoms worsen. Medications at Discharge Discharge Medications: Continue taking these medications: Lisinopril (Lisinopril) 10 MG TABLET 1 Tablet ORAL DAILY Qty = 90 Comments: Last Taken: 04/13/17 Time: 1045 AM Atorvastatin Calcium (Atorvastatin Calcium) 10 MG TABLET 1 Tablet ORAL DAILY Qty = 90 Comments: Last Taken: 04/12/17 Time: 430 PM Omeprazole (Omeprazole) 20 MG CAPSULE.DR 1 Capsule ORAL DAILY Qty = 30 Comments: Last Taken: 04/13/17 Time: 700 AM Start taking the following new medications: Apixaban (Eliquis) 5 MG TABLET 1 Tablet ORAL TWICE DAILY Qty = 60 No Refills Instructions: . Comments: Last Taken: 04/13/17 Time: 135 PM Metoprolol Succ XL (Toprol XL) 25 MG TAB 25 Milligram ORAL DAILY Qty = 30 Refills = 1 Instructions: . Comments: Last Taken: 04/13/17 Time: 1045 AM Copies To: Reji LAWSON,Lewis Wilder MD,Terry Faith Attending MD Review Statement Documenting Attending: Dana LAWSON,Kraie Faith Other Findings: Agree with the above discharge plan. see separate note for more details.
[2017-04-13 14:45] VITALS: BP 130/80
== END 2017-04-13 16:45 | DRG 309 ==
LOC: ERH 00:13 → 1NO 03:05 → ERHI 03:05 → ENRESERV 03:38 → 1NO 03:59 → ENPENDDIS 04-13 14:11 → 1NO 04-13 16:45
PROVIDERS: Internal Medicine; Internal Medicine Adolescent Medicine; Student in an Organized Health Care Education/Training Program
DX: I48.0 Paroxysmal atrial fibrillation (principal); I50.32 Chronic diastolic (congestive) heart failure; E87.0 Hyperosmolality and hypernatremia; E87.2 Acidosis; D71 Functional disorders of polymorphonuclear neutrophils; D72.1 Eosinophilia; I11.0 Hypertensive heart disease with heart failure; T45.0X5A Adverse effect of antiallergic and antiemetic drugs, initial encounter; K21.9 Gastro-esophageal reflux disease without esophagitis; K44.9 Diaphragmatic hernia without obstruction or gangrene; Z87.891 Personal history of nicotine dependence; E78.5 Hyperlipidemia, unspecified; I36.1 Nonrheumatic tricuspid (valve) insufficiency
CPT/HCPCS: 1NSP; 36415; 71045; 82436; 93005; 93010; 93306; 96374; 96375; 99291; J1644

== ENCOUNTER 2017-07-13 23:36 | Inpatient (IN) | payer OTHER ==
[~2017-07-13] VITALS: Ht 167.6 cm; Wt 78.0 kg
[~2017-07-13 23:36] MED LIST: ATORVASTATIN CA10 M1 PO; ELIQUIS5 M1 PO; LISINOPRIL10 M1 PO; OMEPRAZOLE20 M2 PO; TOPROL XL25 M1 PO
--- NOTE | 2017-07-13 23:45 | ED CARDIAC/CP/PALPITATIONS ---
History of Present Illness General Chief Complaint: Chest Pain Stated Complaint: PT C/O SEVERE CHEST PAIN PER PT CARDIAC HX Source: patient Exam Limitations: no limitations Vital Signs & Intake/Output Vital Signs & Intake/Output Vital Signs Date Time Temp Pulse Resp B/P B/P Pulse O2 O2 Flow FiO2 Mean Ox Delivery Rate 07/14 0123 100 18 118/78 07/14 0100 82 18 118/78 100 Room Air 07/14 0023 97.4 154 18 192/82 07/14 0012 154 18 192/82 97 Room Air 07/13 2353 97.4 73 18 197/103 97 ED Intake and Output 07/14 0000 07/13 1200 Intake Total Output Total Balance Patient 170 lb Weight Weight Reported by Patient Measurement Method Allergies Coded Allergies: No Known Allergies (04/12/17) Reconcile Medications Apixaban (Eliquis) 5 MG TABLET 1 TAB PO BID BLOOD THINNER . Atorvastatin Calcium 10 MG TABLET 1 TAB PO DAILY CHOL (Reported) Lisinopril 10 MG TABLET 1 TAB PO DAILY HTN (Reported) Metoprolol Succ XL (Toprol XL) 25 MG TAB 25 MG PO DAILY HEART RATE . Omeprazole 20 MG CAPSULE.DR 1 CAP PO DAILY GERD (Reported) Triage Nurses Notes Reviewed? yes Onset: Gradual Duration: minute(s): Timing: single episode today Quality/Severity: moderate Location: central Radiation: no radiation Activities at Onset: none Modifying Factors: Improves With: rest. HPI: 67 yo gentleman h/o diastolic chf, htn, afib, presents with 8/10 substernal chest pressure and the sensation that his heart was beating quickly. Past History Medical History Any Pertinent Medical History? see below for history Cardiovascular: diastolic CHF, hypertension History of MRSA: No History of VRE: No History of CDIFF: No Influenza Vaccine: 02/26/17 Surgical History Surgical History: non-contributory, s/p vascetectomy s/p hemorrhoidectomy Psychosocial History Who do you live with Spouse What is your primary language Ma[place] Family History Hx Contributory? No Review of Systems Review of Systems Constitutional: Reports: no symptoms. EENTM: Reports: no symptoms. Respiratory: Reports: no symptoms. Cardiovascular: Reports: no symptoms. GI: Reports: no symptoms. Genitourinary: Reports: no symptoms. Musculoskeletal: Reports: no symptoms. Skin: Reports: no symptoms. Neurological/Psychological: Reports: no symptoms. Hematologic/Endocrine: Reports: no symptoms. Immunologic/Allergic: Reports: no symptoms. All Other Systems: Reviewed and Negative Physical Exam Physical Exam General Appearance: well developed/nourished, mild distress Head: atraumatic, normal appearance Eyes: Bilateral: normal appearance. Ears, Nose, Throat: normal pharynx, normal ENT inspection Neck: normal inspection, supple, full range of motion Respiratory: normal breath sounds, chest non-tender, no respiratory distress, quiet respiration, lungs clear Cardiovascular: irregularly irregular Gastrointestinal: normal bowel sounds, soft, non-tender, no organomegaly Back: normal inspection, normal range of motion Extremities: normal inspection, normal capillary refill, normal range of motion, no edema Neurologic/Psych: no motor/sensory deficits, awake, alert, oriented x 3 Skin: intact, normal color, warm/dry Core Measures ACS in differential dx? No CVA/TIA Diagnosis No Sepsis Present: No Sepsis Focused Exam Completed? No Progress Differential Diagnosis: afib with rvr vs unstable angina vs other. Plan of Care: Orders Procedure Date/time Status Nothing by Mouth 07/14 B Active TROPONIN LEVEL 07/14 0600 Active LIPID PANEL 07/14 0600 Active CBC WITHOUT DIFFERENTIAL 07/14 0600 Active BASIC ELECTROLYTES PLUS BUN&CR 07/14 0600 Active EKG 07/14 0600 Active Patient Data 07/14 0142 Active Pathway - chart 07/14 0140 Active Saline Lock 07/14 0124 Active Misc Message 07/14 0124 Active ED Holding Orders 07/14 0124 Active Admit to inpatient 07/14 0124 Active Vital Signs 07/14 0124 Active Code Status 07/14 0124 Active Saline Lock 07/14 UNK Active Pathway - chart 07/14 UNK Active House Staff 07/14 UNK Active VTE Mechanical Prophylaxis 07/14 UNK Active EKG 07/13 2345 Active TROPONIN LEVEL 07/13 2344 Complete LIPASE 07/13 2344 Complete HEPATIC FUNCTION PANEL 07/13 2344 Complete D-DIMER 07/13 2344 Complete CBC WITHOUT DIFFERENTIAL 07/13 2344 Complete BASIC METABOLIC PANEL 07/13 2344 Complete AMYLASE 07/13 2344 Complete Intake & Output 07/13 2340 Active EKG 07/13 2338 Active Current Medications Sig/Tanya Start time Last Medication Dose Stop Time Status Admin Enoxaparin Sodium 40 MG DAILY 07/14 0900 CANr (Lovenox) Multivitamins 1 TAB DAILY 07/14 0900 UNVr (Theragran Vitamins) Laboratory Tests 07/13/17 2354: Anion Gap 16, Estimated GFR > 60, BUN/Creatinine Ratio 16.7, Glucose 118 H, Calcium 9.5, Total Bilirubin 0.8, Direct Bilirubin 0.4, AST 35, ALT 40, Alkaline Phosphatase 124, Troponin I < 0.01, Total Protein 7.6, Albumin 4.4, Amylase 85, Lipase 225, D-Dimer High Sensitivty < 200, CBC w Diff MAN DIFF ORDERED, RBC 4.75 , MCV 86.7, MCH 29.1, MCHC 33.6, RDW 13.7, MPV 9.6, Gran % 44.3, Lymphocytes % 38.3, Monocytes % 13.4 H, Eosinophils % 3.5, Basophils % 0.5, Absolute Granulocytes 2.7, Segmented Neutrophils 47, Band Neutrophils 1, Absolute Lymphocytes 2.4, Lymphocytes 34, Monocytes 16 H, Absolute Monocytes 0.8 H, Eosinophils 1, Absolute Eosinophils 0.2, Basophils 1, Absolute Basophils 0, Nucleated RBCs 1 H, Platelet Estimate ADEQUATE, Normochromic RBCs VERIFIED, Poikilocytosis 1+, Ovalocytes 1+, Fld Total RBCs Counted 100 Diagnostic Imaging: Viewed by Me: Radiology Read. Discussed w/RAD: Radiology Read. CXR Impression: PATIENT: FLAKITO BOX PRESENT AGE: 67 PATIENT ACCOUNT NO: [id number] : 49 LOCATION: [facility] ORDERING PHYSICIAN: Pradip King MD SERVICE DATE: 07/13/17 EXAM TYPE: RAD - XRY- PORTABLE CHEST XRAY EXAMINATION: XR PORTABLE CHEST CLINICAL INFORMATION: Chest pain COMPARISON: 04/12/2017 TECHNIQUE: Portable frontal view of the chest was obtained. FINDINGS: Lung volumes are symmetric. No focal consolidation is seen. No evidence of pneumothorax, pleural effusion, or pulmonary edema. Cardiac size is within normal limits. Calcification is present at the aortic arch. No acute osseous findings are seen. IMPRESSION: No acute cardiopulmonary findings. DICTATED BY: Raymond Rushing MD DATE/TIME DICTATED:07/14/1718 CURER ACID DRUM:YOGI DATE/TIME TRANSCRIBED:07/14/1718 CONFIDENTIAL, DO NOT COPY WITHOUT APPROPRIATE AUTHORIZATION. <Electronically signed in Other Vendor System> SIGNED BY: Raymond Rushing MD 07/14/17 0025 Initial ED EKG: afib, no acute changes. Repeat EKG: changed (afib w/rvr) Departure Departure Disposition: STILL A PATIENT Condition: Stable Clinical Impression Primary Impression: Chest pain Secondary Impressions: Atrial fibrillation with RVR Referrals: Reji Mendoza MD (PCP/Family) Departure Forms: Customer Survey General Discharge Information Comments 07/14/17, 1:20am... discussed with dr. pedro rosa... dilt iv shortage... will treat with iv lopresor or iv verapamil... pt given meds... pulse between 80's and low 100's. Admission Note Spoke With: Michael Mchugh MD Documentation of Exam: Documentation of any treatments & extenuating circumstances including Concerns Regarding Discharge (functional status, medication knowledge or non-compliance, living conditions, etc.) that warrant an admission rather than observation: pt with afib with rvr... pt merits iv rate controlling meds, telemetry monitoring and cards eval in AM. pt is chest pain free after meds. Critical Care Note Critical Care Note Critical Care Time: 30-74 min
[2017-07-14] VITALS (7 sets, daily range): BP systolic 112–150; BP diastolic 58–70
[2017-07-14 00:13] LABS: ABSOLUTE BASOPHIL COUNT 0 /CUMM (0.0-0.2); ABSOLUTE EOSINOPHIL COUNT 0.2 /CUMM (0.0-0.7); ABSOLUTE GRANULOCYTE CT 2.7 /CUMM (1.4-6.5); ABSOLUTE LYMPH COUNT 2.4 /CUMM (1.2-3.4); ABSOLUTE MONOCYTE COUNT 0.8 /CUMM (0.10-0.60); BASOPHIL % 0.5 % (0.0-2.0); EOSINOPHIL % 3.5 % (0-5); GRANULOCYTE % 44.3 % (42.2-75.2); HEMATOCRIT 41.2 % (42-52); MEAN CORPUSCULAR HGB 29.1 PG (27.0-31.0); MEAN CORPUSCULAR HGB CONC 33.6 G/DL (33.0-37.0); MEAN CORPUSCULAR VOLUME 86.7 FL (80.0-94.0); MEAN PLATELET VOLUME 9.6 FL (7.4-10.4); PLATELET COUNT 195 /CUMM (130-400); RBC DISTRIBUTION WIDTH 13.7 % (11.5-14.5); RED BLOOD CELL CT 4.75 /CUMM (4.70-6.10); WHITE BLOOD CELL COUNT 6.2 /CUMM (4.8-10.8)
--- NOTE | 2017-07-14 00:25 | RADIOLOGY REPORT ---
EXAMINATION: XR PORTABLE CHEST CLINICAL INFORMATION: Chest pain COMPARISON: 04/12/2017 TECHNIQUE: Portable frontal view of the chest was obtained. FINDINGS: Lung volumes are symmetric. No focal consolidation is seen. No evidence of pneumothorax, pleural effusion, or pulmonary edema. Cardiac size is within normal limits. Calcification is present at the aortic arch. No acute osseous findings are seen. IMPRESSION: No acute cardiopulmonary findings.
--- NOTE | 2017-07-14 01:31 | History & Physical ---
Angelic LAWSON,[facility] 07/14/17 0129: General Information and HPI MD Statement: I have seen and personally examined FLAKITO BOX and documented this H&P. The patient is a 67 year old M who presented with a patient stated chief complaint of [heart racing]. Source of Information: patient Exam Limitations: no limitations History of Present Illness: 67 yo M with PMH of hypertension, stage I diastolic heart failure and A.fib presented to the ED for evaluation of heart racing. The patient states that earlier today around 10pm he was watching TV when he started feeling like his heart was racing. He took his blood pressure which was 212/90 the first time and repeat measurement was 242 systolic (says he does not remember the lower reading ). He felt a little short of breath at that time. He decided to come to the ER for further evaluation as he was just not feeling right. He denies any chest pain, palpitations, headaches, dizziness, lightheadedness or any other associated symptoms during the episode. He mentions Dr Abarca is his admissions manager rn and he last saw him one month ago. Allergies/Medications Allergies: Coded Allergies: No Known Allergies (04/12/17) Home Med list Apixaban (Eliquis) 5 MG TABLET 1 TAB PO BID BLOOD THINNER . Atorvastatin Calcium 10 MG TABLET 1 TAB PO DAILY CHOL (Reported) Lisinopril 10 MG TABLET 1 TAB PO DAILY HTN (Reported) Metoprolol Succ XL (Toprol XL) 25 MG TAB 25 MG PO DAILY HEART RATE . Omeprazole 20 MG CAPSULE.DR 1 CAP PO DAILY GERD (Reported) Past History Travel History Traveled to [place] past 21 day No Medical History Neurological: NONE EENT: NONE Cardiovascular: diastolic CHF, hypertension Respiratory: NONE Gastrointestinal: NONE Hepatic: NONE Renal: NONE Musculoskeletal: NONE Psychiatric: NONE Endocrine: NONE Blood Disorders: NONE Cancer(s): NONE CONTAINER MAKER/Reproductive: NONE History of MRSA: No History of VRE: No History of CDIFF: No Influenza Vaccine: 02/26/17 Surgical History Surgical History: non-contributory, s/p vascetectomy s/p hemorrhoidectomy Past Family/Social History Functional Ability ADLs Independent: dressing, eating, toileting, bathing. Ambulation: independent IADLs Independent: shopping, housework, finances, food prep, telephone, transportation , medication admin. Review of Systems Review of Systems Constitutional: Denies: chills, fever. EENTM: Reports: no symptoms. Cardiovascular: Denies: chest pain, palpitations. Respiratory: Reports: cough, short of breath. GI: Reports: no symptoms. Genitourinary: Reports: no symptoms. Musculoskeletal: Denies: joint pain. Skin: Reports: no symptoms. Neurological/Psychological: Reports: no symptoms. Denies: headache, numbness, paresthesia. Exam & Diagnostic Data Last 24 Hrs of Vital Signs/I&O Vital Signs Date Time Temp Pulse Resp B/P B/P Pulse O2 O2 Flow FiO2 Mean Ox Delivery Rate 07/14 0245 78 18 128/78 98 Room Air 07/14 0244 80 16 128/78 07/14 0123 100 18 118/78 07/14 0100 82 18 118/78 100 Room Air 07/14 0023 97.4 154 18 192/82 07/14 0012 154 18 192/82 97 Room Air 07/13 2353 97.4 73 18 197/103 97 Intake & Output 07/14 0800 07/14 0000 07/13 1600 Intake Total Output Total Balance Patient 170 lb Weight Weight Reported by Patient Measurement Method Physical Exam General Appearance Alert, Oriented X3, Cooperative, No Acute Distress Skin No Rashes, No Breakdown Skin Temp/Moisture Exam: Warm/Dry Sepsis Skin Exam (color): Normal for Ethnicity HEENT Atraumatic Cardiovascular Normal S1, Normal S2, No Murmurs Lungs Clear to Auscultation, Normal Air Movement Abdomen Soft, No Tenderness Neurological Normal Speech Extremities No Edema Last 24 Hrs of Labs/Mario: Laboratory Tests 07/13/172353: Anion Gap 16, Estimated GFR > 60, BUN/Creatinine Ratio 16.7, Glucose 118 H, Calcium 9.5, Total Bilirubin 0.8, Direct Bilirubin 0.4, AST 35, ALT 40, Alkaline Phosphatase 124, Troponin I < 0.01, Total Protein 7.6, Albumin 4.4, Amylase 85, Lipase 225, D-Dimer High Sensitivty < 200, CBC w Diff MAN DIFF ORDERED, RBC 4.75 , MCV 86.7, MCH 29.1, MCHC 33.6, RDW 13.7, MPV 9.6, Gran % 44.3, Lymphocytes % 38.3, Monocytes % 13.4 H, Eosinophils % 3.5, Basophils % 0.5, Absolute Granulocytes 2.7, Segmented Neutrophils 47, Band Neutrophils 1, Absolute Lymphocytes 2.4, Lymphocytes 34, Monocytes 16 H, Absolute Monocytes 0.8 H, Eosinophils 1, Absolute Eosinophils 0.2, Basophils 1, Absolute Basophils 0, Nucleated RBCs 1 H, Platelet Estimate ADEQUATE, Normochromic RBCs VERIFIED, Poikilocytosis 1+, Ovalocytes 1+, Fld Total RBCs Counted 100 Assessment/Plan Assessment: 67 yo M with PMH of hypertension, stage I diastolic heart failure and A.fib presented to the ED for evaluation of heart racing. Assessment: 1. Atrial Fibrilliation with RVR 2. History of Hypertension Plan: * Admit to telemetry for monitoring of heart rate and rhythm. He has received IV Metoprolol 5mg x2 and Cardizem 60mg PO in the ER which should provide adequate rate control for now. * R/O ACS with serial trops and EKGs * Cardiology consult with Dr Abarca in am * Consider increasing his dose of metoprolol * Continue all home medications. * Diet: Heart Healthy * DVT Prophylaxis: Eliquis * Code: DNR/DNI As Ranked By This Provider Problem List: 1. Atrial fibrillation with RVR Core Measures/Misc (12/07) Acute Coronary Syndrome ACS Diagnosis: No Congestive Heart Failure Congestive Heart Failure Diagnosis No Cerebrovascular Accident CVA/TIA Diagnosis: No VTE (View Protocol) VTE Risk Factors Age>40 No Mechanical VTE Prophylaxis d/t N/A MechProphylax Ordered No VTE Pharm Prophylaxis d/t NA PharmProphylax ordered Sepsis (View protocol) Sepsis Present: No Fidencio Gonzales 07/14/17 0209: Resident Review Statement Resident Statement: examined this patient, discussed with internet marketing analyst, agreed with internet marketing analyst, discussed with family, reviewed EMR data (avail), discussed with nursing , discussed with case mgmt, reviewed images Other Findings: Patient presented with a c/o palpitation, SOB and elevtaed BP at home up to 200' s systolic, he was found on A.Fib with RVR, will admitt the patient to telemetry floor, will r/o ACS, gentle hydration, will continue his home medications, consider increasing the dose of Metoprolol if his heart rate is still elevated. DVT ppx: Eileen, DNR/DNI Michael Mchugh 07/14/17 0514: Attending MD Review Statement Attending Statement Attending MD Statement: examined this patient, discuss w/resident/PA/RESPITE WORKER, agreed w/resident/PA/RESPITE WORKER, reviewed EMR data (avail), reviewed images, amended to note Attending Assessment/Plan: CC: Palpitations and shortness of breath PMH: HTN, Afib Patient was in hospital April 12 for newly diagnosed A. fib, discharged on metoprolol and Eliquis. Patient has been compliant with his medications since discharge and did not have any episode of palpitations in between, followed up with admissions manager rn as suggested. Today he noticed heart palpitations when he was watching television, it happened suddenly without any precipitating factors, at that time he also noticed chest tightness and shortness of breath but denies any chest pain. He checked his blood pressure was 212/90 and repeat one was 242 systolic so he came to ER. Currently he denies any chest pain, chest tightness, shortness of breath or palpitations. Otherwise complete ROS unremarkable. No cough, congestion, and sinus drainage, abdominal pain, diarrhea, urinary symptoms. Patient did not have syncope or presyncope today. 3 weeks back he was evaluated with 24-hour rn cardiac cath and everything was normal according to him. Vitals: Temperature 97.4, pulse in 150s then responded to treatment and improved to 100, RR 18, blood pressure 197/103, saturating 98% on room air On exam: A O 3, cooperative, no acute distress, nasal stuffiness, neck supple, JVD normal, no lymphadenopathy, mucosa dry, no focal neurological deficit, no dependent edema, no obvious skin rashes or inflammation CVS: S1-S2, regular. RS: Clear to auscultate bilaterally. Abdomen: Soft, NT, ND, bowel sounds present. CXR: No acute cardiopulmonary process Assessment and plan 67-year-old male with recently diagnosed A. fib presented in ER for sudden episode of palpitations, chest tightness and shortness of breath but denies any chest pain. It happened at rest, his blood pressure was significantly elevated at home as mentioned above so he came to ER. Patient is found to have an A. fib with RVR, was treated with 10 mg of IV metoprolol and 60 mg of by mouth diltiazem, appropriately responded to this treatment and heart rate gradually trending down. Currently patient is asymptomatic. A shunt may benefit from titrating up his medication, either increased dose of metoprolol or add diltiazem, we will obtain cardiology opinion for the same. + A. fib with RVR + History of HTN - Admit to telemetry for A. fib with RVR - Continuous telemetry monitoring - Serial troponin and EKGs - Cardiology consult in a.m. - Continue his home medications
[2017-07-14 05:50] LABS: ABSOLUTE BASOPHIL COUNT 0 /CUMM (0.0-0.2); ABSOLUTE EOSINOPHIL COUNT 0.2 /CUMM (0.0-0.7); ABSOLUTE GRANULOCYTE CT 2.8 /CUMM (1.4-6.5); ABSOLUTE MONOCYTE COUNT 0.7 /CUMM (0.10-0.60); BASOPHIL % 0.3 % (0.0-2.0); GRANULOCYTE % 49.5 % (42.2-75.2); HEMATOCRIT 42.5 % (42-52); MEAN CORPUSCULAR HGB 28.9 PG (27.0-31.0); MEAN CORPUSCULAR HGB CONC 32.7 G/DL (33.0-37.0); MEAN CORPUSCULAR VOLUME 88.4 FL (80.0-94.0); MEAN PLATELET VOLUME 9.3 FL (7.4-10.4); PLATELET COUNT 200 /CUMM (130-400); RBC DISTRIBUTION WIDTH 13.4 % (11.5-14.5); WHITE BLOOD CELL COUNT 5.7 /CUMM (4.8-10.8)
--- NOTE | 2017-07-14 11:05 | Cons- Cardiology ---
General Information and HPI Consulting Request Date of Consult: 07/14/17 Requested By: Michael Mchugh MD Reason for Consult: Atrial fibrillation with rapid ventricular response Source of Information: patient, old records Exam Limitations: no limitations History of Present Illness: Cristhian Box is a 67-year-old male who was generally healthy except for treated hypertension and dyslipidemia, until he presented to [facility] on 04/12/2017. His history consisted of fatigue and palpitations which occurred around 9:00 at night. His blood pressure at home was elevated to over 200 and he came to the emergency room. He was found to be in atrial fibrillation with a rapid ventricular response and nonspecific ST-T wave abnormalities. Subsequently he converted spontaneously to sinus rhythm. He was treated with IV Cardizem. He was also anticoagulated. He remained in sinus rhythm and he was started on anticoagulation because of an elevated CHADS score. He has remained on Eliquis, lisinopril, metoprolol, and atorvastatin at home. His past history is significant again for dyslipidemia and hypertension. His echocardiogram in the hospital showed mild LVH with normal systolic function and abnormal diastolic function. There were no other significant abnormalities and his left atrial size was normal. Mr. Box is an ex-smoker, he stopped in 1981. He has had some minor surgeries in the past but nothing major. 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 I saw the patient in the office about one month ago for initial cardiac evaluation. I did not change any of his regimen. He was feeling well and was in sinus rhythm. I recommended a Holter monitor, which I don't think he has had as of yet. He was then well until last evening when he began getting palpitations. He took his blood pressure and again it was over 200 and he came to the emergency room. He was found to be in rapid atrial fibrillation. He was treated with IV beta blockers, oral diltiazem (IV diltiazem is not currently available), and verapamil intravenously, which was ordered but not given. Overnight his rate improved and early this morning he converted to sinus rhythm and remains in sinus rhythm at this time. His enzymes are negative 2. He is not having any other cardiac symptoms at this time and feels well. Allergies/Medications Allergies: Coded Allergies: No Known Allergies (04/12/17) Home Med List: Apixaban (Eliquis) 5 MG TABLET 1 TAB PO BID BLOOD THINNER . Atorvastatin Calcium 10 MG TABLET 1 TAB PO DAILY CHOL (Reported) Lisinopril 10 MG TABLET 1 TAB PO DAILY HTN (Reported) Metoprolol Succ XL (Toprol XL) 25 MG TAB 25 MG PO DAILY HEART RATE . Omeprazole 20 MG CAPSULE.DR 1 CAP PO DAILY GERD (Reported) Sotalol (Betapace) 80 MG TABLET 80 MG PO BID A FIB Current Medications: Current Medications Sig/Tanya Start time Last Medication Dose Route Stop Time Status Admin Apixaban 5 MG BID 07/14 0900 AC PO Aspirin 0 .STK-MED ONE 07/14 0002 DC PO Aspirin 325 MG ONCE ONE 07/135 DC 07/14 PO 07/13 2345 0004 Atorvastatin Calcium 10 MG 1700 07/14 1700 AC PO Diltiazem HCl 60 MG STAT STA 07/14 0113 DC 07/14 PO 07/14 0114 0244 Enoxaparin Sodium 40 MG DAILY 07/14 0900 CAN SC Lisinopril 10 MG DAILY 07/14 09 AC PO Metoprolol Succinate 25 MG DAILY 07/14 0900 AC PO Metoprolol Tartrate 0 .STK-MED ONE 07/14 0022 DC IV Metoprolol Tartrate 5 MG ONCE ONE 07/14 0015 DC IV 07/14 0016 Metoprolol Tartrate 5 MG ONCE ONE 07/14 0015 DC 07/14 IV 07/14 0016 0123 Metoprolol Tartrate 5 MG ONCE ONE 07/14 0015 DC 07/14 IV 07/14 0016 0023 Multivitamins 1 TAB DAILY 07/14 09 AC PO Nitroglycerin 0 .STK-MED ONE 07/14 0002 DC SL Nitroglycerin 0.4 MG ONCE ONE 07/13 2345 DC 07/14 SL 07/13 2345 0004 Omeprazole 20 MG DAILY 07/14 0900 AC PO Verapamil HCl 5 MG ONE ONE 07/14 0115 DC IV 07/14 0116 Review of Systems Review of Systems: He has no other complaints in the review of systems at this time Past History Travel History Traveled to [place] past 21 day No Medical History Neurological: NONE EENT: NONE Cardiovascular: diastolic CHF, hypertension Respiratory: NONE Gastrointestinal: NONE Hepatic: NONE Renal: NONE Musculoskeletal: NONE Psychiatric: NONE Endocrine: NONE Blood Disorders: NONE Cancer(s): NONE INTERNAL COMMUNICATIONS MANAGER/Reproductive: NONE Surgical History Surgical History: non-contributory, s/p vascetectomy s/p hemorrhoidectomy Psychosocial History Smoking Status: Never Smoked Functional Ability ADLs Independent: dressing, eating, toileting, bathing. Ambulation: independent IADLs Independent: shopping, housework, finances, food prep, telephone, transportation , medication admin. Exam & Diagnostic Data Vital Signs and I&O Vital Signs Date Time Temp Pulse Resp B/P B/P Pulse O2 O2 Flow FiO2 Mean Ox Delivery Rate 07/14 0834 48 07/14 0739 98.1 70 20 118/58 97 Room Air 07/14 0723 98.2 60 20 150/60 98 Nasal Cannula 07/14 0652 98.1 70 20 118/58 97 Room Air 07/14 0531 96.0 62 18 113/63 100 Room Air 07/14 0245 78 18 128/78 98 Room Air 07/14 0244 80 16 128/78 07/14 0123 100 18 118/78 07/14 0100 99 Room Air 07/14 0100 82 18 118/78 100 Room Air 07/14 0023 97.4 154 18 192/82 07/14 0012 154 18 192/82 97 Room Air 07/13 2353 97.4 73 18 197/103 97 Intake & Output 07/14 1600 07/14 0800 07/14 0000 07/13 1600 07/13 0800 07/13 0000 Intake Total Output Total Balance Patient 175 lb 170 lb Weight Weight Bed scale Reported by Patient Measurement Method Physical Exam: Well developed and well nourished late middle-aged male in no acute distress HEENT exam normal Neck veins not distended Carotids normal Chest clear Heart regular rhythm, bradycardia, no murmurs Abdomen benign Extremities good pulses, no edema Labs/Mario Results: Laboratory Tests 07/14 07/13 0537 2354 Chemistry Sodium (137 - 145 mmol/L) 142 142 Potassium (3.5 - 5.1 mmol/L) 4.2 4.0 Chloride (98 - 107 mmol/L) 105 100 Carbon Dioxide (22 - 30 mmol/L) 27 27 Anion Gap (5 - 16) 10 16 BUN (9 - 20 mg/dL) 14 15 Creatinine (0.7 - 1.2 mg/dL) 0.7 0.9 Estimated GFR (>60 ml/min) > 60 > 60 BUN/Creatinine Ratio (7 - 25 %) 20.0 16.7 Glucose (65 - 99 mg/dL) 118 H Calcium (8.4 - 10.2 mg/dL) 9.5 Total Bilirubin (0.2 - 1.3 mg/dL) 0.8 Direct Bilirubin (< 0.4 mg/dL) 0.4 AST (17 - 59 U/L) 35 ALT (21 - 72 U/L) 40 Alkaline Phosphatase (< 127 U/L) 124 Troponin I (<0.11 ng/ml) 0.02 < 0.01 Total Protein (6.3 - 8.2 g/dL) 7.6 Albumin (3.5 - 5.0 g/dL) 4.4 Triglycerides (<150 mg/dL) 57 Cholesterol (< 200 MG/DL) 93 LDL Cholesterol, Calc (65 - 129 mg/dL) 41 L HDL Cholesterol (40 - 60 mg/dL) 41 Cholesterol/HDL Ratio (0.00 - 4.88 %) 2 Amylase (30 - 110 U/L) 85 Lipase (23 - 300 U/L) 225 Coagulation D-Dimer High Sensitivty (0 - 243 ng/ml) < 200 Hematology CBC w Diff NO MAN DIFF REQ MAN DIFF ORDERED WBC (4.8 - 10.8 /CUMM) 5.7 6.2 RBC (4.70 - 6.10 /CUMM) 4.80 4.75 Hgb (14.0 - 18.0 G/DL) 13.9 L 13.8 L Hct (42 - 52 %) 42.5 41.2 L MCV (80.0 - 94.0 FL) 88.4 86.7 MCH (27.0 - 31.0 PG) 28.9 29.1 MCHC (33.0 - 37.0 G/DL) 32.7 L 33.6 RDW (11.5 - 14.5 %) 13.4 13.7 Plt Count (130 - 400 /CUMM) 200 195 MPV (7.4 - 10.4 FL) 9.3 9.6 Gran % (42.2 - 75.2 %) 49.5 44.3 Lymphocytes % (20.5 - 51.1 %) 34.6 38.3 Monocytes % (1.7 - 9.3 %) 12.6 H 13.4 H Eosinophils % (0 - 5 %) 3.0 3.5 Basophils % (0.0 - 2.0 %) 0.3 0.5 Absolute Granulocytes (1.4 - 6.5 /CUMM) 2.8 2.7 Segmented Neutrophils (42.2 - 75.2 %) 47 Band Neutrophils (0.0 - 5.0 %) 1 Absolute Lymphocytes (1.2 - 3.4 /CUMM) 2.0 2.4 Lymphocytes (20.5 - 51.1 %) 34 Monocytes (1.7 - 9.3 %) 16 H Absolute Monocytes (0.10 - 0.60 /CUMM) 0.7 H 0.8 H Eosinophils (0 - 5.0 %) 1 Absolute Eosinophils (0.0 - 0.7 /CUMM) 0.2 0.2 Basophils (0.0 - 2.0 %) 1 Absolute Basophils (0.0 - 0.2 /CUMM) 0 0 Nucleated RBCs (0.0 - 0.0 /100WBC) 1 H Platelet Estimate (ADEQUATE) ADEQUATE Normochromic RBCs VERIFIED Poikilocytosis 1+ Ovalocytes 1+ Other Body Source Fld Total RBCs Counted (%) 100 Diagnostic Data EKG Results Initial EKG around midnight showed atrial fibrillation with a rate of [address] depression. Repeat EKG at about 12:20 AM shows atrial fibrillation now with a heart rate of 146. Repeat EKG this morning at 8:30 AM shows sinus bradycardia at a rate of 48 and is otherwise unremarkable. CXR Results PATIENT: CRISTHIAN BOX PRESENT AGE: 67 PATIENT ACCOUNT NO: [id number] : 49 LOCATION: [facility] ORDERING PHYSICIAN: Pradip King MD SERVICE DATE: 07/13/170341 EXAM TYPE: RAD - XRY-PORTABLE CHEST XRAY EXAMINATION: XR PORTABLE CHEST CLINICAL INFORMATION: Chest pain COMPARISON: 04/12/2017 TECHNIQUE: Portable frontal view of the chest was obtained. FINDINGS: Lung volumes are symmetric. No focal consolidation is seen. No evidence of pneumothorax, pleural effusion, or pulmonary edema. Cardiac size is within normal limits. Calcification is present at the aortic arch. No acute osseous findings are seen. IMPRESSION: No acute cardiopulmonary findings. DICTATED BY: Raymond Rushing MD DATE/TIME DICTATED:07/14/1718 MANAGER ICU:YOGI DATE/TIME TRANSCRIBED:07/14/1718 CONFIDENTIAL, DO NOT COPY WITHOUT APPROPRIATE AUTHORIZATION. <Electronically signed in Other Vendor System> SIGNED BY: Raymond Rushing MD 07/14/17 0025 Assessment/Plan Assessment/Plan The patient is a 67-year-old male with underlying hypertension and dyslipidemia who presents with his second episode of paroxysmal atrial fibrillation within several months. He has again spontaneously converted to sinus rhythm, with the help of beta blockers and calcium blockers. His echocardiogram previously did not show any major abnormalities except for mild LVH. I would recommend changing his medications to sotalol 80 mg twice daily to try and stabilize his rhythm. We can stop the metoprolol and use the sotalol for beta-blockade. If he has recurrent atrial fibrillation on this regimen then I would recommend an electrophysiologic consultation for consideration for either alternative antiarrhythmic drugs or atrial fibrillation ablation. We will watch him at least 24 hours after starting sotalol as per protocol. Consult Acknowledgment - Thank you for your consult request.
--- NOTE | 2017-07-14 11:52 | PN- Att Addend ---
Attending Addendum Attending Brief Note Patient denies any new complaints. He is sinus bradycardia this am. She received iv metoprolol in ER, Po cardizem. His BP is much better this am. PE unremarakable. CXR: No acute cardiopulmonary process 67-year-old male with recently diagnosed A. fib. Currently patient is asymptomatic and sinus bradycardia. Cardiology consult. 1 A. fib with RVR with sinus bradycardia 2. Accelerated HTN Continuous telemetry monitoring, Serial troponin negative so far. B romina held this am. Monitor heart rate and BP. Contiue with lisinopril/eliquis for now. Admission Lab Results I reviewed the following labs: Laboratory Tests 07/14 07/14 1130 0537 Chemistry Sodium (137 - 145 mmol/L) 142 Potassium (3.5 - 5.1 mmol/L) 4.2 Chloride (98 - 107 mmol/L) 105 Carbon Dioxide (22 - 30 mmol/L) 27 Anion Gap (5 - 16) 10 BUN (9 - 20 mg/dL) 14 Creatinine (0.7 - 1.2 mg/dL) 0.7 Estimated GFR (>60 ml/min) > 60 BUN/Creatinine Ratio (7 - 25 %) 20.0 Troponin I (<0.11 ng/ml) Pending 0.02 Triglycerides (<150 mg/dL) 57 Cholesterol (< 200 MG/DL) 93 LDL Cholesterol, Calc (65 - 129 mg/dL) 41 L HDL Cholesterol (40 - 60 mg/dL) 41 Cholesterol/HDL Ratio (0.00 - 4.88 %) 2 Hematology CBC w Diff NO MAN DIFF REQ WBC (4.8 - 10.8 /CUMM) 5.7 RBC (4.70 - 6.10 /CUMM) 4.80 Hgb (14.0 - 18.0 G/DL) 13.9 L Hct (42 - 52 %) 42.5 MCV (80.0 - 94.0 FL) 88.4 MCH (27.0 - 31.0 PG) 28.9 MCHC (33.0 - 37.0 G/DL) 32.7 L RDW (11.5 - 14.5 %) 13.4 Plt Count (130 - 400 /CUMM) 200 MPV (7.4 - 10.4 FL) 9.3 Gran % (42.2 - 75.2 %) 49.5 Lymphocytes % (20.5 - 51.1 %) 34.6 Monocytes % (1.7 - 9.3 %) 12.6 H Eosinophils % (0 - 5 %) 3.0 Basophils % (0.0 - 2.0 %) 0.3 Absolute Granulocytes (1.4 - 6.5 /CUMM) 2.8 Absolute Lymphocytes (1.2 - 3.4 /CUMM) 2.0 Absolute Monocytes (0.10 - 0.60 /CUMM) 0.7 H Absolute Eosinophils (0.0 - 0.7 /CUMM) 0.2 Absolute Basophils (0.0 - 0.2 /CUMM) 0 07/13 2354 Chemistry Sodium (137 - 145 mmol/L) 142 Potassium (3.5 - 5.1 mmol/L) 4.0 Chloride (98 - 107 mmol/L) 100 Carbon Dioxide (22 - 30 mmol/L) 27 Anion Gap (5 - 16) 16 BUN (9 - 20 mg/dL) 15 Creatinine (0.7 - 1.2 mg/dL) 0.9 Estimated GFR (>60 ml/min) > 60 BUN/Creatinine Ratio (7 - 25 %) 16.7 Glucose (65 - 99 mg/dL) 118 H Calcium (8.4 - 10.2 mg/dL) 9.5 Total Bilirubin (0.2 - 1.3 mg/dL) 0.8 Direct Bilirubin (< 0.4 mg/dL) 0.4 AST (17 - 59 U/L) 35 ALT (21 - 72 U/L) 40 Alkaline Phosphatase (< 127 U/L) 124 Troponin I (<0.11 ng/ml) < 0.01 Total Protein (6.3 - 8.2 g/dL) 7.6 Albumin (3.5 - 5.0 g/dL) 4.4 Amylase (30 - 110 U/L) 85 Lipase (23 - 300 U/L) 225 Coagulation D-Dimer High Sensitivty (0 - 243 ng/ml) < 200 Hematology CBC w Diff MAN DIFF ORDERED WBC (4.8 - 10.8 /CUMM) 6.2 RBC (4.70 - 6.10 /CUMM) 4.75 Hgb (14.0 - 18.0 G/DL) 13.8 L Hct (42 - 52 %) 41.2 L MCV (80.0 - 94.0 FL) 86.7 MCH (27.0 - 31.0 PG) 29.1 MCHC (33.0 - 37.0 G/DL) 33.6 RDW (11.5 - 14.5 %) 13.7 Plt Count (130 - 400 /CUMM) 195 MPV (7.4 - 10.4 FL) 9.6 Gran % (42.2 - 75.2 %) 44.3 Lymphocytes % (20.5 - 51.1 %) 38.3 Monocytes % (1.7 - 9.3 %) 13.4 H Eosinophils % (0 - 5 %) 3.5 Basophils % (0.0 - 2.0 %) 0.5 Absolute Granulocytes (1.4 - 6.5 /CUMM) 2.7 Segmented Neutrophils (42.2 - 75.2 %) 47 Band Neutrophils (0.0 - 5.0 %) 1 Absolute Lymphocytes (1.2 - 3.4 /CUMM) 2.4 Lymphocytes (20.5 - 51.1 %) 34 Monocytes (1.7 - 9.3 %) 16 H Absolute Monocytes (0.10 - 0.60 /CUMM) 0.8 H Eosinophils (0 - 5.0 %) 1 Absolute Eosinophils (0.0 - 0.7 /CUMM) 0.2 Basophils (0.0 - 2.0 %) 1 Absolute Basophils (0.0 - 0.2 /CUMM) 0 Nucleated RBCs (0.0 - 0.0 /100WBC) 1 H Platelet Estimate (ADEQUATE) ADEQUATE Normochromic RBCs VERIFIED Poikilocytosis 1+ Ovalocytes 1+ Other Body Source Fld Total RBCs Counted (%) 100 Admission Meds I reviewed the following Meds: Current Medications Sig/Tanya Start time Last Medication Dose Stop Time Status Admin Apixaban 5 MG BID 07/14 09 AC 07/14 (Eliquis) 1102 Atorvastatin Calcium 10 MG 1700 07/14 1700 AC (Lipitor) Enoxaparin Sodium 40 MG DAILY 07/14 899 CAN (Lovenox) Lisinopril 10 MG DAILY 07/14 09 AC (Prinivil) Multivitamins 1 TAB DAILY 07/14 899 AC 07/14 (Theragran Vitamins) 1102 Omeprazole 20 MG DAILY 07/14 09 AC 07/14 (Prilosec) 1102 Sotalol HCl 80 MG BID 07/14 1145 AC (Betapace)
[2017-07-15 06:49] VITALS: BP 128/72
[2017-07-15 08:30] VITALS: BP 124/70
--- NOTE | 2017-07-15 08:41 | PN- Housestaff ---
Pietro LAWSON,Leo 07/15/17 0841: Subjective Follow-up For: afib with rvr, HTN urgency Complaints: no complaints Tele-Events Since Last Visit: sinus bradycardia, hr 49-53, pr 0.16, qrs 0.06 pt had converted to sinus rhythm from afib yesterday around 0800 hrs Subjective: I followed up the patient today. He was resting in bed, alert, not in distress, and did not have any complaints. He was curious about his diet, salt intake and exercise, which we talked about this morning. VSS except for bradycardia. He denies any dizziness, weakness, chest pain, dyspnea. No nursing issues reported overnight. Review of Systems Constitutional: Reports: no symptoms. Objective Last 24 Hrs of Vital Signs/I&O Vital Signs Date Time Temp Pulse Resp B/P B/P Pulse O2 O2 Flow FiO2 Mean Ox Delivery Rate 07/15 829 56 124/70 07/15 0649 98.0 56 20 128/72 96 Room Air 07/14 2210 98.4 60 20 116/66 97 Room Air 07/14 1600 128/72 07/14 1457 52 130/70 07/14 1409 98.1 53 20 112/68 96 Room Air 07/14 1106 98.3 58 18 118/66 97 Room Air Intake & Output 07/15 1600 07/15 0800 07/15 0000 Intake Total 340 460 Output Total Balance 340 460 Intake, Oral 340 460 Patient 78.018 kg Weight Physical Exam General Appearance: Alert, Oriented X3, Cooperative, No Acute Distress, overweight Other Physical Findings: Skin No Rashes, No Breakdown Skin Temp/Moisture Exam: Warm/Dry HEENT Atraumatic, WNL Cardiovascular Normal S1, Normal S2, No Murmurs Lungs Clear to Auscultation, Normal Air Movement Abdomen Soft, No Tenderness Neurological grossly intact Extremities No Edema Current Medications: Current Medications Sig/Tanya Start time Last Medication Dose Route Stop Time Status Admin Apixaban 5 MG BID 07/14 899 AC 07/15 PO 0829 Atorvastatin Calcium 10 MG 1700 07/14 1700 AC 07/14 PO 1600 Lisinopril 10 MG DAILY 07/14 09 AC 07/15 PO 0830 Metoprolol Succinate 25 MG DAILY 07/14 09 DC PO Multivitamins 1 TAB DAILY 07/14 899 AC 07/15 PO 0830 Omeprazole 20 MG DAILY 07/14 0800 AC 07/15 PO 0829 Patient Medication 1 ED ONE ONE 07/14 1700 DC 07/15 Teaching ED 07/14 1701 0658 Sotalol HCl 80 MG BID 07/14 1145 AC 07/15 PO 0829 Last 24 Hrs of Lab/Mario Results Last 24 Hrs of Labs/Mics: Laboratory Tests 07/15/17 0725: Sodium Pending, Potassium Pending, Chloride Pending, Carbon Dioxide Pending, Anion Gap Pending, BUN Pending, Creatinine Pending, BUN/Creatinine Ratio Pending , CBC w Diff Pending, WBC Pending, RBC Pending, Hgb Pending, Hct Pending, MCV Pending, MCH Pending, MCHC Pending, RDW Pending, Plt Count Pending, MPV Pending 07/14/17 1130: Troponin I < 0.01 Assessment/Plan Assessment: 67-year-old male with past medical history of hypertension, hyperlipidemia, with second episode of paroxysmal atrial fibrillation previously on metoprolol succinate, and Eliquis for anticoagulation closure because of fatigue and palpitation, which brought him to the emergency department, and was found to have atrial fibrillation with rapid ventricular response and hypertensive urgency as well. He received beta blockers and calcium channel blockers in the emergency room which did not help, and with equity research associate's suggestion, he was started on sotalol, discontinued metoprolol, which controlled his heart rate and he is now back in sinus rhythm since yesterday morning. His heart rate has been in 50s, without further lowering it down, and he is asymptomatic as of now. Blood pressure is within normal limits as well. He is planned to be discharged later today, with a follow-up with Dr. Pop Abarca (equity research associate) in one week's time. Patient was extensively counseled about diet and exercise, and including reducing salt intake, avoiding canned food, avoiding [place] food having high salt content this morning, to which he understood and agreed to the plan as well. Problem List: 1. Afib 2. Hypertensive urgency Pain Ratin Pain Location: - Pain Goal: Pain 4 or less Pain Plan: prn Tomorrow's Labs & Rationales: - David Ramirez 07/15/17 1118: Attending MD Review Statement Attending Statement Attending MD Statement: examined this patient, discuss w/resident/PA/GUEST REQUEST RUNNER, agreed w/resident/PA/GUEST REQUEST RUNNER, discussed with family, reviewed EMR data (avail), discussed with nursing, discussed with case mgmt, reviewed images, amended to note Attending Assessment/Plan: Patient denies any new complaints. Asymptomatic. PE unremarakable. 1 A. fib with RVR now in sinus rythm 2. Accelerated HTN Serial troponin negative so far. Sotalol 80 bid started. Contiue with lisinopril /eliquis for now. Obtain EKG for Qtc before discharge. Medically stable for discharge.
[2017-07-15 08:44] LABS: ABSOLUTE BASOPHIL COUNT 0 /CUMM (0.0-0.2); ABSOLUTE EOSINOPHIL COUNT 0.1 /CUMM (0.0-0.7); ABSOLUTE GRANULOCYTE CT 3.1 /CUMM (1.4-6.5); ABSOLUTE LYMPH COUNT 1.3 /CUMM (1.2-3.4); ABSOLUTE MONOCYTE COUNT 0.4 /CUMM (0.10-0.60); BASOPHIL % 0.2 % (0.0-2.0); EOSINOPHIL % 2.8 % (0-5); GRANULOCYTE % 61.7 % (42.2-75.2); HEMATOCRIT 40.5 % (42-52); MEAN CORPUSCULAR HGB 29.6 PG (27.0-31.0); MEAN CORPUSCULAR HGB CONC 34.1 G/DL (33.0-37.0); MEAN CORPUSCULAR VOLUME 86.8 FL (80.0-94.0); MEAN PLATELET VOLUME 9.9 FL (7.4-10.4); PLATELET COUNT 183 /CUMM (130-400); RED BLOOD CELL CT 4.66 /CUMM (4.70-6.10)
[2017-07-15] MEDS ORDERED: BETAPACE80 MG PO ×3 (10:39→10:48)
[2017-07-15] MEDS ORDERED: ONE DAILY MULT1 EAC2 PO ×2 (10:46→10:48)
--- NOTE | 2017-07-15 10:54 | PN- Cardiology ---
Subjective Subjective: The patient is feeling well. He has tolerated sotalol without any problems. His heart rate is in the 50s. He remains in sinus rhythm. He has no complaints of chest pain, shortness of breath, palpitations. The EKG this morning looks good. The QT interval is normal. Objective Vital Signs and I&Os Vital Signs Date Time Temp Pulse Resp B/P B/P Pulse O2 O2 Flow FiO2 Mean Ox Delivery Rate 07/15 0830 56 124/70 07/15 0649 98.0 56 20 128/72 96 Room Air 07/14 2210 98.4 60 20 116/66 97 Room Air 07/14 1600 128/72 07/14 1457 52 130/70 07/14 1409 98.1 53 20 112/68 96 Room Air 07/14 1106 98.3 58 18 118/66 97 Room Air Intake & Output 07/15 1600 07/15 0800 07/15 0000 07/14 1600 07/14 0800 07/14 0000 Intake Total 340 460 580 Output Total Balance 340 460 580 Intake, IV 20 Intake, Oral 340 460 560 Number 1 Bowel Movements Patient 172 lb 175 lb 170 lb Weight Weight Bed scale Reported by Patient Measurement Method Physical Exam: HEENT exam normal Chest clear Heart no murmurs, gallops or rubs. Extremities, no edema Current Medications: Current Medications Sig/Tanya Start time Last Medication Dose Route Stop Time Status Admin Apixaban 5 MG BID 07/14 0900 AC 07/15 PO 0829 Atorvastatin Calcium 10 MG 1700 07/14 1700 AC 07/14 PO 1600 Lisinopril 10 MG DAILY 07/14 0900 AC 07/15 PO 0830 Metoprolol Succinate 25 MG DAILY 07/14 0900 DC PO Multivitamins 1 TAB DAILY 07/14 0900 AC 07/15 PO 0830 Omeprazole 20 MG DAILY 07/14 0900 AC 07/15 PO 0829 Patient Medication 1 ED ONE ONE 07/14 1700 DC 07/15 Teaching ED 07/14 1701 0658 Sotalol HCl 80 MG BID 07/14 1145 AC 07/15 PO 0829 Results Last 48 Hrs of Labs/Mics: Laboratory Tests 07/15/17 0725: Anion Gap 11, Estimated GFR > 60, BUN/Creatinine Ratio 21.1, CBC w Diff NO MAN DIFF REQ, RBC 4.66 L, MCV 86.8, MCH 29.6, MCHC 34.1, RDW 14.0, MPV 9.9, Gran % 61.7, Lymphocytes % 27.0, Monocytes % 8.3, Eosinophils % 2.8, Basophils % 0.2, Absolute Granulocytes 3.1, Absolute Lymphocytes 1.3, Absolute Monocytes 0.4, Absolute Eosinophils 0.1, Absolute Basophils 0 07/14/17 1130: Troponin I < 0.01 07/14/17 0537: Anion Gap 10, Estimated GFR > 60, BUN/Creatinine Ratio 20.0, Troponin I 0.02, Triglycerides 57, Cholesterol 93, LDL Cholesterol, Calc 41 L, HDL Cholesterol 41, Cholesterol/HDL Ratio 2, CBC w Diff NO MAN DIFF REQ, RBC 4.80, MCV 88.4, MCH 28.9, MCHC 32.7 L, RDW 13.4, MPV 9.3, Gran % 49.5, Lymphocytes % 34.6, Monocytes % 12.6 H, Eosinophils % 3.0, Basophils % 0.3, Absolute Granulocytes 2.8, Absolute Lymphocytes 2.0, Absolute Monocytes 0.7 H, Absolute Eosinophils 0.2, Absolute Basophils 0 07/13/17 2354: Anion Gap 16, Estimated GFR > 60, BUN/Creatinine Ratio 16.7, Glucose 118 H, Calcium 9.5, Total Bilirubin 0.8, Direct Bilirubin 0.4, AST 35, ALT 40, Alkaline Phosphatase 124, Troponin I < 0.01, Total Protein 7.6, Albumin 4.4, Amylase 85, Lipase 225, D-Dimer High Sensitivty < 200, CBC w Diff MAN DIFF ORDERED, RBC 4.75 , MCV 86.7, MCH 29.1, MCHC 33.6, RDW 13.7, MPV 9.6, Gran % 44.3, Lymphocytes % 38.3, Monocytes % 13.4 H, Eosinophils % 3.5, Basophils % 0.5, Absolute Granulocytes 2.7, Segmented Neutrophils 47, Band Neutrophils 1, Absolute Lymphocytes 2.4, Lymphocytes 34, Monocytes 16 H, Absolute Monocytes 0.8 H, Eosinophils 1, Absolute Eosinophils 0.2, Basophils 1, Absolute Basophils 0, Nucleated RBCs 1 H, Platelet Estimate ADEQUATE, Normochromic RBCs VERIFIED, Poikilocytosis 1+, Ovalocytes 1+, Fld Total RBCs Counted 100 Recent Imaging Studies: EKG shows sinus rhythm at a rate of 52 with normal QT interval and is within normal limits. Assessment/Plan Assessment/Plan The patient has had no further episodes of atrial fibrillation. He remains in sinus rhythm. He is tolerating sotalol well. I recommend he can be discharged on this regimen. He already has a follow-up appointment with me next week. Continue telemetry? Not applicable
--- NOTE | 2017-07-15 11:00 | Patient Discharge Instructions ---
Discharge Instructions General Discharge Information You were seen/treated for: Atrial fibrillation with RVR, now controlled Hypertensive urgency Special Instructions: Please follow up with Dr Abarca (Cardiology) on your usual appointment (July 20, 2017). Your medical has been changed. STOP Metoprolol. Take new medication (Sotalol) as prescribed. Please follow up with your PCP after your discharge. Please return to emergency if symptoms worsen. Diet Continue normal diet: No Recommended Diet: Heart Healthy Activity Full Activity/No Limits: No Activity Self Limited: Yes Acute Coronary Syndrome Inclusion Criteria At DC or during hospital stay patient has or had the following: ACS DIAGNOSIS No Discharge Core Measures Meds if any: Prescribed or Continued at Discharge Meds if any: NOT Prescribed or Continued at Discharge Congestive Heart Failure Inclusion Criteria At DC or during hospital stay patient has or had the following: CHF DIAGNOSIS No Discharge Core Measures Meds if any: Prescribed or Continued at Discharge Meds if any: NOT Prescribed or Continued at Discharge Cerebrovascular accident Inclusion Criteria At DC or during hospital stay patient has or had the following: CVA/TIA Diagnosis No Discharge Core Measures Meds if any: Prescribed or Continued at Discharge Meds if any: NOT Prescribed or Continued at Discharge Venous thromboembolism Inclusion Criteria VTE Diagnosis No VTE Type NONE VTE Confirmed by (Test) NONE Discharge Core Measures - Per Current guidelines, there needs to be overlap - treatment for the first 5 days of Warfarin therapy. - If discharged on Warfarin prior to 5 days of - overlap therapy, the patient will need to be - assessed for post discharge needs including - *Post discharge parental anticoagulation - *Warfarin and/or parental anticoagulation education - *Follow up date to check INR post discharge At least 5 days overlap therapy as Inpatient No Meds if any: Prescribed or Continued at Discharge Note: Overlap Therapy is Warfarin and Anticoagulant Meds if any: NOT Prescribed or Continued at Discharge
--- NOTE | 2017-07-15 17:40 | Discharge Summary ---
Visit Information Visit Dates Admission Date: 07/14/17 Discharge Date: 07/15/17 Hospital Course Course Attending Physician: David Ramirez MD Primary Care Physician: Reji Mendoza MD Consulting Request: Consulting Specialty: Cardiology Consulting Physician: Dr Pop Abarca Reason for Consult: a fib with RVR and HTN urgency Hospital Course: 67-year-old male with past medical history of hypertension, hyperlipidemia, with second episode of paroxysmal atrial fibrillation previously on metoprolol succinate, and Eliquis for anticoagulation closure because of fatigue and palpitation, which brought him to the emergency department, and was found to have atrial fibrillation with rapid ventricular response and hypertensive urgency as well. He received beta blockers and calcium channel blockers in the emergency room which did not help, and with manipulator operator's suggestion, he was started on sotalol, discontinued metoprolol, which controlled his heart rate and he is now back in sinus rhythm since 07/14/17 around 0800 hrs. His heart rate has been in 50s, without further lowering it down, and he is asymptomatic at the time of discharge. Blood pressure is within normal limits as well. He is now discharged with a follow-up with Dr. Pop Abarca (manipulator operator) in one week 's time. Patient was extensively counseled about diet and exercise, and including reducing salt intake, avoiding canned food, avoiding Swiss food having high salt content this morning, to which he understood and agreed to the plan as well. Complications: None Allergies: Coded Allergies: No Known Allergies (04/12/17) Pertinent Lab Results: Laboratory Tests 07/15 07/14 0725 1130 Chemistry Sodium (137 - 145 mmol/L) 142 Potassium (3.5 - 5.1 mmol/L) 4.3 Chloride (98 - 107 mmol/L) 104 Carbon Dioxide (22 - 30 mmol/L) 27 Anion Gap (5 - 16) 11 BUN (9 - 20 mg/dL) 19 Creatinine (0.7 - 1.2 mg/dL) 0.9 Estimated GFR (>60 ml/min) > 60 BUN/Creatinine Ratio (7 - 25 %) 21.1 Troponin I (<0.11 ng/ml) < 0.01 Hematology CBC w Diff NO MAN DIFF REQ WBC (4.8 - 10.8 /CUMM) 5.0 RBC (4.70 - 6.10 /CUMM) 4.66 L Hgb (14.0 - 18.0 G/DL) 13.8 L Hct (42 - 52 %) 40.5 L MCV (80.0 - 94.0 FL) 86.8 MCH (27.0 - 31.0 PG) 29.6 MCHC (33.0 - 37.0 G/DL) 34.1 RDW (11.5 - 14.5 %) 14.0 Plt Count (130 - 400 /CUMM) 183 MPV (7.4 - 10.4 FL) 9.9 Gran % (42.2 - 75.2 %) 61.7 Lymphocytes % (20.5 - 51.1 %) 27.0 Monocytes % (1.7 - 9.3 %) 8.3 Eosinophils % (0 - 5 %) 2.8 Basophils % (0.0 - 2.0 %) 0.2 Absolute Granulocytes (1.4 - 6.5 /CUMM) 3.1 Absolute Lymphocytes (1.2 - 3.4 /CUMM) 1.3 Absolute Monocytes (0.10 - 0.60 /CUMM) 0.4 Absolute Eosinophils (0.0 - 0.7 /CUMM) 0.1 Absolute Basophils (0.0 - 0.2 /CUMM) 0 07/14 07/13 0537 2354 Chemistry Sodium (137 - 145 mmol/L) 142 142 Potassium (3.5 - 5.1 mmol/L) 4.2 4.0 Chloride (98 - 107 mmol/L) 105 100 Carbon Dioxide (22 - 30 mmol/L) 27 27 Anion Gap (5 - 16) 10 16 BUN (9 - 20 mg/dL) 14 15 Creatinine (0.7 - 1.2 mg/dL) 0.7 0.9 Estimated GFR (>60 ml/min) > 60 > 60 BUN/Creatinine Ratio (7 - 25 %) 20.0 16.7 Glucose (65 - 99 mg/dL) 118 H Calcium (8.4 - 10.2 mg/dL) 9.5 Total Bilirubin (0.2 - 1.3 mg/dL) 0.8 Direct Bilirubin (< 0.4 mg/dL) 0.4 AST (17 - 59 U/L) 35 ALT (21 - 72 U/L) 40 Alkaline Phosphatase (< 127 U/L) 124 Troponin I (<0.11 ng/ml) 0.02 < 0.01 Total Protein (6.3 - 8.2 g/dL) 7.6 Albumin (3.5 - 5.0 g/dL) 4.4 Triglycerides (<150 mg/dL) 57 Cholesterol (< 200 MG/DL) 93 LDL Cholesterol, Calc (65 - 129 mg/dL) 41 L HDL Cholesterol (40 - 60 mg/dL) 41 Cholesterol/HDL Ratio (0.00 - 4.88 %) 2 Amylase (30 - 110 U/L) 85 Lipase (23 - 300 U/L) 225 Coagulation D-Dimer High Sensitivty (0 - 243 ng/ml) < 200 Hematology CBC w Diff NO MAN DIFF REQ MAN DIFF ORDERED WBC (4.8 - 10.8 /CUMM) 5.7 6.2 RBC (4.70 - 6.10 /CUMM) 4.80 4.75 Hgb (14.0 - 18.0 G/DL) 13.9 L 13.8 L Hct (42 - 52 %) 42.5 41.2 L MCV (80.0 - 94.0 FL) 88.4 86.7 MCH (27.0 - 31.0 PG) 28.9 29.1 MCHC (33.0 - 37.0 G/DL) 32.7 L 33.6 RDW (11.5 - 14.5 %) 13.4 13.7 Plt Count (130 - 400 /CUMM) 200 195 MPV (7.4 - 10.4 FL) 9.3 9.6 Gran % (42.2 - 75.2 %) 49.5 44.3 Lymphocytes % (20.5 - 51.1 %) 34.6 38.3 Monocytes % (1.7 - 9.3 %) 12.6 H 13.4 H Eosinophils % (0 - 5 %) 3.0 3.5 Basophils % (0.0 - 2.0 %) 0.3 0.5 Absolute Granulocytes (1.4 - 6.5 /CUMM) 2.8 2.7 Segmented Neutrophils (42.2 - 75.2 %) 47 Band Neutrophils (0.0 - 5.0 %) 1 Absolute Lymphocytes (1.2 - 3.4 /CUMM) 2.0 2.4 Lymphocytes (20.5 - 51.1 %) 34 Monocytes (1.7 - 9.3 %) 16 H Absolute Monocytes (0.10 - 0.60 /CUMM) 0.7 H 0.8 H Eosinophils (0 - 5.0 %) 1 Absolute Eosinophils (0.0 - 0.7 /CUMM) 0.2 0.2 Basophils (0.0 - 2.0 %) 1 Absolute Basophils (0.0 - 0.2 /CUMM) 0 0 Nucleated RBCs (0.0 - 0.0 /100WBC) 1 H Platelet Estimate (ADEQUATE) ADEQUATE Normochromic RBCs VERIFIED Poikilocytosis 1+ Ovalocytes 1+ Other Body Source Fld Total RBCs Counted (%) 100 Disposition Summary Disposition Principal Diagnosis: Atrial fibrillation with RVR, now controlled Hypertensive urgency Additional Diagnosis: HTN, HLD Discharge Disposition: home or self care Discharge Instructions General Discharge Information Code Status: Do Not Resucitate/Intubat Patient's Diet: Heart healthy diet, low salt Patient's Activity: As tolerated Follow-Up Instructions/Appts: Please follow up with Dr Abarca (Cardiology) on your usual appointment (July 20, 2017). Your medical has been changed. STOP Metoprolol. Take new medication (Sotalol) as prescribed. Please follow up with your PCP after your discharge. Please return to emergency if symptoms worsen. Medications at Discharge Discharge Medications: Stop taking the following medications: Metoprolol Succ XL (Toprol XL) 25 MG TAB ORAL DAILY Qty = 30 Continue taking these medications: Lisinopril (Lisinopril) 10 MG TABLET 1 Tablet ORAL DAILY Qty = 90 Comments: Last Taken:07/15/17 Time: 8:30 AM Atorvastatin Calcium (Atorvastatin Calcium) 10 MG TABLET 1 Tablet ORAL DAILY Qty = 90 Comments: Last Taken:07/14/17 Time: 4:00 PM Omeprazole (Omeprazole) 20 MG CAPSULE. 1 Capsule ORAL DAILY Qty = 30 Comments: Last Taken:07/15/17 Time: 8:30 AM Apixaban (Eliquis) 5 MG TABLET 1 Tablet ORAL TWICE DAILY Qty = 60 Instructions: . Comments: Last Taken:07/15/17 Time: 8:30 AM Start taking the following new medications: Sotalol (Betapace) 80 MG TABLET 80 Milligram ORAL TWICE DAILY Qty = 60 Refills = 2 Instructions: .. Comments: Last Taken:4/25/18 Time: 8:30 AM Multivitamin (One Daily Multivitamin) 1 EACH TABLET 1 Tablet ORAL DAILY Qty = 30 Refills = 2 Instructions: . Comments: Last Taken:07/15/17 Time: 8:30 AM Copies To: Reji LAWSON,Reji; Tevin LAWSON,Pop Elizondo Attending MD Review Statement Documenting Attending: Ashley LAWSON,David Other Findings: Patient denies any new complaints. Asymptomatic. DISCHARGE DIAGNOSIS 1 A. fib with RVR now in sinus rythm 2. Accelerated HTN with improvement Serial troponin negative so far. Sotalol 80 bid started. Continue cardiac meds. Medically stable for discharge. Avoid caffeine, nicotine. STAFFING ASSISTANT Cardiology FOLLOW UP Dr Abarca in 1-2 weeks of discharge.
== END 2017-07-15 12:45 | DRG 309 ==
LOC: ERH 23:36 → 1NO 07-14 02:01 → ERHI 07-14 02:01 → ENRESERV 07-14 05:32 → 1NO 07-14 06:09 → ENPENDDIS 07-15 10:49 → ENTRNSPT 07-15 12:04 → EDTRNSPTSTS 07-15 12:38 → EDTRNSPT 07-15 12:38 → 1NO 07-15 12:45 → CMPTRNSPT 07-15 12:47
PROVIDERS: Internal Medicine; Pediatrics; Student in an Organized Health Care Education/Training Program
DX: I48.0 Paroxysmal atrial fibrillation (principal); I50.32 Chronic diastolic (congestive) heart failure; I11.0 Hypertensive heart disease with heart failure; Z79.01 Long term (current) use of anticoagulants; I16.0 Hypertensive urgency; E78.5 Hyperlipidemia, unspecified; Z66 Do not resuscitate; R00.1 Bradycardia, unspecified
CPT/HCPCS: 1NSP; 36415; 36592; 71045; 82436; 93005; 93010; 96374; 96376; 99291; J3490